=== PATIENT | female | born 1980 | race Caucasian/White ===

== ENCOUNTER 2016-04-01 19:54 | Emergency (ER) | payer OTHER ==
[~2016-04-01] VITALS: Ht 167.6 cm; Wt 112.3 kg
[~2016-04-01 19:54] MED LIST: ADVIL,NUPRIN,M200 MG PO; ADVIL200 MG PO; ASPIRIN E.C.81 M1 PO; AZACTAM2 GM IV; BACTRIM,SEPT1 TABLET PO; CARDIZEM CD,CA180 MG PO; CARDIZEM60 MG PO; CIPRO500 MG PO; CIPROFLOXACIN500 M1 PO; CLEOCIN300 MG PO; Colace PO; DESYREL100 MG PO; DILTIAZEM 24HR120 MG PO; ELAVIL10 MG PO; ENDOCET 5-3251 EACH PO; FLEXERIL10 MG PO; FLOMAX0.4 MG PO; Feosol PO; HYDROCODON-ACE1 EAC7 PO; IBUPROFEN800 MG PO; KLONOPIN0.5 M1 PO; LYRICA50 MG PO; MACROBID100 MG PO; METOPROLOL SUCC50 MG PO; Motrin PO; NAPROSYN500 MG PO; NATALCARE RX1 TABLE1 PO; NO HOME MEDS; NOHOMEMEDS; OMEPRAZOLE20 MG PO; OXYCODONE HCL15 MG PO; PERCOCET 10/1 TABLET PO; PERCOCET 5/31 TABLET PO; PRENATAL1 EACH PO; PRILOSEC20 MG PO; PROAIR HFA8.5 GM IH; PROTONIX40 MG PO; Procardia XL,Adalat PO; REGLAN10 MG PO; TORADOL10 MG PO; TYLENOL EXTRA500 MG PO; VALIUM5 MG PO; VOLTAREN-XR100 MG PO; ZITHROMAX Z-PA250 MG PO; ZOFRAN ODT4 MG PO; ZOFRAN4 MG PO
[2016-04-01 21:04] LABS: ADD MIUA? NO; BILIRUBIN NEGATIVE; BLOOD NEGATIVE; COLOR YELLOW ((YELLOW)); GLUCOSE (STRIP) NEGATIVE; KETONES NEGATIVE; LEUKOCYTES NEGATIVE; NITRITE NEGATIVE; PROTEIN (STRIP) NEGATIVE; SPECIFIC GRAVITY 1.029 (1.000-1.030); UCUL ADDED? NO; UROBILINOGEN 0.2 MG/DL (0.2-1.0)
[2016-04-01 21:06] LABS: INTERNAL CONTROL VALID? YES
[2016-04-01] MEDS ORDERED: DIFLUCAN150 MG PO (22:41)
[2016-04-01] MEDS ORDERED: OXYCODONE HCL15 MG PO (22:43)
[2016-04-01 23:00] VITALS: BP 124/70
[2016-04-02 13:24] LABS: CHLAMYDIA TRACHOMATIS NEGATIVE; NEISSERIA GONORRHOEAE NEGATIVE
== END 2016-04-01 23:34 | disposition home or self-care (01) ==
LOC: RME 19:54 → EME 19:54 → RME 23:34
PROVIDERS: Physician Assistant
DX: N89.8 Other specified noninflammatory disorders of vagina (principal)
CPT/HCPCS: 76856; 81003; 84703; 87210; 87491; 87591; 99281; 99284

== ENCOUNTER 2016-05-12 08:51 | Emergency (ER) | payer OTHER ==
[~2016-05-12] VITALS: Ht 167.6 cm; Wt 110.3 kg
[~2016-05-12 08:51] MED LIST changes: +DIFLUCAN150 MG PO
[2016-05-12 08:56] VITALS: BP 119/78
[2016-05-12 10:01] LABS: ADD MIUA? YES; BILIRUBIN SMALL; BLOOD NEGATIVE; COLOR YELLOW ((YELLOW)); GLUCOSE (STRIP) NEGATIVE; KETONES 5; LEUKOCYTES MODERATE; NITRITE NEGATIVE; PROTEIN (STRIP) 100; UROBILINOGEN 0.2 MG/DL (0.2-1.0)
[2016-05-12 10:21] LABS: BACTERIA RARE /HPF; EPITHELIAL CELLS 1+ /HPF; HYALINE CASTS 0-5 /LPF; MUCUS TRACE /LPF; RED BLOOD CELLS NONE SEEN /HPF (0-5); UCUL ADDED? YES; WHITE BLOOD CELLS TNTC /HPF (0-5)
[2016-05-12 10:44] LABS: HEMATOCRIT 33.9 % (36.0-46.0); MCH 28.8 PG (29.0-34.0); MCV 87.1 FL (83-99); MEAN PLAT.VOLUME 9.3 uM^3 (9.5-12.4); PLATELET COUNT 214 K/uL (156-360); RBC DIS.WIDTH-CV 14.1 % (11.8-14.6); RBC DIS.WIDTH-SD 43.9 % (39-53); RED BLOOD COUNT 3.89 M/uL (3.80-5.20); WHITE BLOOD COUNT 8.3 K/uL (4.1-10.2)
[2016-05-12 10:56] LABS: CHLORIDE 103 mEq/L (99-109); POTASSIUM 3.4 mEq/L (3.7-5.4); SODIUM 141 mEq/L (136-147)
[2016-05-12 10:58] LABS: GLUCOSE 134 mg/dL (70-99)
[2016-05-12 10:59] LABS: ANION GAP 12 MEQ/L (2-14)
[2016-05-12 11:00] LABS: TOTAL BILIRUBIN 0.1 mg/dL (0.0-1.0)
[2016-05-12 11:02] LABS: ALKALINE PHOSPHATASE 95 IU/L (3-129); GFR ESTIMATE (CALCULATED) > 59 mL/min/
[2016-05-12 11:03] LABS: UREA NITROGEN (BUN) 17 mg/dL (9-23)
[2016-05-12 11:11] LABS: QUANTITATIVE HCG < 4.0 MIU/ML
[2016-05-12] MEDS ORDERED: MORPHINE SULFAT15 M1 PO (22:50)
[2016-05-12] MEDS ORDERED: PRILOSEC20 MG PO (22:50)
[2016-05-12] MEDS ORDERED: FLONASE16 G1 BOTH NARES (22:50)
[2016-05-12] MEDS ORDERED: PERCOCET 10/1 TABLET PO (22:50)
[2016-05-12] MEDS ORDERED: DESYREL100 MG PO (22:51)
== END 2016-05-12 11:10 | disposition left against medical advice (07) ==
LOC: EME 08:51
DX: R50.9 Fever, unspecified (principal); M79.1 Myalgia; R51 Headache; R10.9 Unspecified abdominal pain; R30.9 Painful micturition, unspecified; Z53.21 Procedure and treatment not carried out due to patient leaving prior to being seen by health care provider
CPT/HCPCS: 80053; 81003; 84702; 85027; 87077; 87086; 87186

== ENCOUNTER 2016-05-12 17:46 | Inpatient (IN) | payer OTHER ==
[~2016-05-12] VITALS: Ht 167.6 cm; Wt 112.9 kg
[2016-05-12 20:55] LABS: EOSINOPHIL (%) 0.7 % (0-5); EOSINOPHIL COUNT 0.1 K/uL (0-0.3); HEMATOCRIT 35.9 % (36.0-46.0); IMMATURE GRANULOCYTE (%) 0.2 % (0.0-0.7); IMMATURE GRANULOCYTE COUNT 0.2 K/uL; LYMPHOCYTE COUNT 0.7 K/uL (1.0-2.8); MCHC 33.4 G/DL (30.0-36.0); MCV 86.7 FL (83-99); MEAN PLAT.VOLUME 9.4 uM^3 (9.5-12.4); MONOCYTE (%) 3.8 % (3-12); MONOCYTE COUNT 0.3 K/uL (0-0.8); NEUTROPHIL (%) 86.5 % (45-76); PLATELET COUNT 234 K/uL (156-360); RBC DIS.WIDTH-CV 14.1 % (11.8-14.6); RBC DIS.WIDTH-SD 43.7 % (39-53); RED BLOOD COUNT 4.14 M/uL (3.80-5.20); WHITE BLOOD COUNT 8.1 K/uL (4.1-10.2)
[2016-05-12 21:04] LABS: CHLORIDE 95 mEq/L (99-109); POTASSIUM 3.9 mEq/L (3.7-5.4); SODIUM 135 mEq/L (136-147)
[2016-05-12 21:04] LABS: ADD MIUA? NO; BILIRUBIN NEGATIVE; BLOOD NEGATIVE; COLOR YELLOW ((YELLOW)); GLUCOSE (STRIP) NEGATIVE; KETONES NEGATIVE; LEUKOCYTES NEGATIVE; NITRITE NEGATIVE; PROTEIN (STRIP) 30; SPECIFIC GRAVITY 1.013 (1.000-1.030); UROBILINOGEN 0.2 MG/DL (0.2-1.0)
[2016-05-12 21:06] LABS: GLUCOSE 131 mg/dL (70-99)
[2016-05-12 21:07] LABS: ANION GAP 13 MEQ/L (2-14)
[2016-05-12 21:09] LABS: ALKALINE PHOSPHATASE 118 IU/L (3-129)
[2016-05-12 21:10] LABS: GFR ESTIMATE (CALCULATED) > 59 mL/min/
[2016-05-12 21:11] LABS: UREA NITROGEN (BUN) 9 mg/dL (9-23)
[2016-05-12 21:17] LABS: TOTAL BILIRUBIN 0.2 mg/dL (0.0-1.0)
[2016-05-12] MEDS ORDERED: FLONASE16 G1 BOTH NARES (22:50)
[2016-05-12] MEDS ORDERED: PERCOCET 10/1 TABLET PO (22:50)
[2016-05-12] MEDS ORDERED: PRILOSEC20 MG PO (22:50)
[2016-05-12] MEDS ORDERED: MORPHINE SULFAT15 M1 PO (22:50)
[2016-05-12] MEDS ORDERED: DESYREL100 MG PO (22:51)
[2016-05-13 02:58] VITALS: BP 107/58
[2016-05-13 07:10] LABS: EOSINOPHIL (%) 1.6 % (0-5); EOSINOPHIL COUNT 0.1 K/uL (0-0.3); HEMATOCRIT 33.4 % (36.0-46.0); IMMATURE GRANULOCYTE (%) 0.1 % (0.0-0.7); LYMPHOCYTE COUNT 2.1 K/uL (1.0-2.8); MCH 27.8 PG (29.0-34.0); MCHC 31.7 G/DL (30.0-36.0); MCV 87.7 FL (83-99); MEAN PLAT.VOLUME 9.8 uM^3 (9.5-12.4); MONOCYTE (%) 10.1 % (3-12); MONOCYTE COUNT 0.7 K/uL (0-0.8); NEUTROPHIL (%) 57.6 % (45-76); PLATELET COUNT 221 K/uL (156-360); RBC DIS.WIDTH-CV 14.7 % (11.8-14.6); RBC DIS.WIDTH-SD 47.1 % (39-53); RED BLOOD COUNT 3.81 M/uL (3.80-5.20)
[2016-05-13 07:34] LABS: ANION GAP 10 MEQ/L (2-14); CHLORIDE 101 MEQ/L (99-109); GFR ESTIMATE (CALCULATED) > 59 mL/min/; POTASSIUM 4.2 MEQ/L (3.7-5.4); SAMPLE HEMOLYSIS CHECK 0; SAMPLE ICTERIC CHECK 0; SAMPLE LIPEMIA CHECK 0; SODIUM 138 MEQ/L (136-147); UREA NITROGEN (BUN) 9 mg/dL (9-23)
[2016-05-13 07:40] LABS: GLUCOSE 89 mg/dL (70-99)
[2016-05-13 08:22] VITALS: BP 138/69
[2016-05-13 10:09] LABS: Estimated Average Glucose 111 mg/dL (70-123); HEMOGLOBIN A1c (GLYCOHEMOGLOB) 5.5 % HGB (Below 5.7)
[2016-05-13 12:03] VITALS: BP 99/57
[2016-05-13 23:43] VITALS: BP 125/70
[2016-05-14 06:43] LABS: EOSINOPHIL (%) 1.9 % (0-5); EOSINOPHIL COUNT 0.1 K/uL (0-0.3); HEMATOCRIT 30.1 % (36.0-46.0); MCH 28.5 PG (29.0-34.0); MCHC 32.2 G/DL (30.0-36.0); MCV 88.5 FL (83-99); MEAN PLAT.VOLUME 9.4 uM^3 (9.5-12.4); MONOCYTE (%) 9.3 % (3-12); MONOCYTE COUNT 0.5 K/uL (0-0.8); NEUTROPHIL (%) 52.9 % (45-76); PLATELET COUNT 206 K/uL (156-360); RBC DIS.WIDTH-CV 14.8 % (11.8-14.6); RBC DIS.WIDTH-SD 48.1 % (39-53); WHITE BLOOD COUNT 5.7 K/uL (4.1-10.2)
[2016-05-14 07:41] LABS: ANION GAP 9 MEQ/L (2-14); CHLORIDE 106 MEQ/L (99-109); GFR ESTIMATE (CALCULATED) > 59 mL/min/; GLUCOSE 98 mg/dL (70-99); MAGNESIUM 2.1 mg/dl (1.3-2.7); POTASSIUM 4.3 MEQ/L (3.7-5.4); SAMPLE HEMOLYSIS CHECK 0; SAMPLE ICTERIC CHECK 0; SAMPLE LIPEMIA CHECK 0; SODIUM 141 MEQ/L (136-147); UREA NITROGEN (BUN) 9 mg/dL (9-23)
[2016-05-14 07:50] VITALS: BP 108/54
[2016-05-14] MEDS ORDERED: KEFLEX250 MG PO (11:30)
[2016-05-14 12:22] LABS: INTERNAL CONTROL VALID? YES
[2016-05-14 12:50] LABS: C DIFF TOXIN NEGATIVE (NEGATIVE)
[2016-05-14 12:53] LABS: PROBE CHECK PASS; SPECIMEN PROCESSING CONTROL PASS
== END 2016-05-14 11:35 | disposition left against medical advice (07) | DRG 872 ==
LOC: EME 17:46 → RME 17:46 → EDOF 23:00 → 2EAST 23:00 → EDOF 05-13 00:03 → 2EAST 05-13 02:55
PROVIDERS: Internal Medicine; Physician Assistant
DX: A41.9 Sepsis, unspecified organism (principal); N10 Acute pyelonephritis; F33.9 Major depressive disorder, recurrent, unspecified; E87.1 Hypo-osmolality and hyponatremia; Z68.41 Body mass index [BMI] 40.0-44.9, adult; Z91.19 Patient's noncompliance with other medical treatment and regimen; I10 Essential (primary) hypertension; K21.9 Gastro-esophageal reflux disease without esophagitis; G89.29 Other chronic pain; B96.20 Unspecified Escherichia coli [E. coli] as the cause of diseases classified elsewhere; R00.0 Tachycardia, unspecified; J45.909 Unspecified asthma, uncomplicated; M62.81 Muscle weakness (generalized); F17.210 Nicotine dependence, cigarettes, uncomplicated; E66.01 Morbid (severe) obesity due to excess calories; Z88.0 Allergy status to penicillin; Z82.49 Family history of ischemic heart disease and other diseases of the circulatory system
CPT/HCPCS: 74177; 80048; 80053; 81003; 83036; 83605; 83630; 83735; 85025; 87040; 87077; 87086; 87186; 87493; 94799; 99202; 99281; 99285; G0378; J0696; J1644; J1885; J2405; J3010; J7030; J7050; J7120

== ENCOUNTER 2016-06-10 03:15 | Observation (INO) | payer OTHER ==
[~2016-06-10] VITALS: Ht 167.6 cm; Wt 106.8 kg
[~2016-06-10 03:15] MED LIST changes: +FLONASE16 G1 BOTH NARES; +KEFLEX250 MG PO; +MORPHINE SULFAT15 M1 PO
[2016-06-10 03:53] LABS: HEMATOCRIT 43.5 % (36.0-46.0); MCH 29.5 PG (29.0-34.0); MCHC 33.8 G/DL (30.0-36.0); MCV 87.2 FL (83-99); MEAN PLAT.VOLUME 9.2 uM^3 (9.5-12.4); RBC DIS.WIDTH-CV 13.8 % (11.8-14.6); RBC DIS.WIDTH-SD 44.1 % (39-53)
[2016-06-10 03:57] LABS: PLATELET COUNT 305 K/uL (156-360); RED BLOOD COUNT 4.99 M/uL (3.80-5.20); WHITE BLOOD COUNT 15.6 K/uL (4.1-10.2)
[2016-06-10 04:02] LABS: CHLORIDE 101 mEq/L (99-109); POTASSIUM 3.2 mEq/L (3.7-5.4); SODIUM 139 mEq/L (136-147)
[2016-06-10 04:04] LABS: GLUCOSE 172 mg/dL (70-99)
[2016-06-10 04:05] LABS: ANION GAP 15 MEQ/L (2-14)
[2016-06-10 04:06] LABS: TOTAL BILIRUBIN 0.5 mg/dL (0.0-1.0)
[2016-06-10 04:07] LABS: ALKALINE PHOSPHATASE 93 IU/L (3-129)
[2016-06-10 04:08] LABS: GFR ESTIMATE (CALCULATED) > 59 mL/min/
[2016-06-10 04:09] LABS: UREA NITROGEN (BUN) 15 mg/dL (9-23)
[2016-06-10 04:16] LABS: QUANTITATIVE HCG < 4.0 MIU/ML
[2016-06-10 04:43] LABS: LIPASE 11 U/L (1.0-51.0)
[2016-06-10 04:46] LABS: ADD MIUA? YES; BILIRUBIN NEGATIVE; BLOOD MODERATE; COLOR AMBER ((YELLOW)); GLUCOSE (STRIP) NEGATIVE; KETONES 20; LEUKOCYTES NEGATIVE; NITRITE POSITIVE; PROTEIN (STRIP) 100; SPECIFIC GRAVITY 1.031 (1.000-1.030); UROBILINOGEN 0.2 MG/DL (0.2-1.0)
[2016-06-10 04:57] LABS: BACTERIA 3+ /HPF; EPITHELIAL CELLS 3+ /HPF; MUCUS 4+ /LPF; RED BLOOD CELLS TNTC /HPF (0-5); UCUL ADDED? NO; WHITE BLOOD CELLS 0-5 /HPF (0-5)
[2016-06-10 08:04] VITALS: BP 177/96
[2016-06-10 09:27] LABS: METH RESISTANT S AUREUS PCR NEGATIVE (NEGATIVE)
[2016-06-10 09:36] LABS: PROBE CHECK PASS; SPECIMEN PROCESSING CONTROL PASS
[2016-06-10 11:00] VITALS: BP 171/77
[2016-06-10 15:58] VITALS: BP 144/69
[2016-06-10 20:00] VITALS: BP 128/80
[2016-06-11] VITALS: BP 120/64
[2016-06-11 04:00] VITALS: BP 132/80
[2016-06-11 06:56] LABS: HEMATOCRIT 38.2 % (36.0-46.0); MCH 28.9 PG (29.0-34.0); MCHC 32.7 G/DL (30.0-36.0); MCV 88.2 FL (83-99); RBC DIS.WIDTH-CV 13.8 % (11.8-14.6); RBC DIS.WIDTH-SD 44.9 % (39-53); RED BLOOD COUNT 4.33 M/uL (3.80-5.20)
[2016-06-11 07:06] LABS: WHITE BLOOD COUNT 7.8 K/uL (4.1-10.2)
[2016-06-11 07:11] LABS: ANION GAP 10 MEQ/L (2-14); CHLORIDE 107 MEQ/L (99-109); GFR ESTIMATE (CALCULATED) > 59 mL/min/; SAMPLE HEMOLYSIS CHECK 0; SAMPLE ICTERIC CHECK 0; SAMPLE LIPEMIA CHECK 0; SODIUM 142 MEQ/L (136-147); UREA NITROGEN (BUN) 11 mg/dL (9-23)
[2016-06-11 07:16] LABS: GLUCOSE 90 mg/dL (70-99)
[2016-06-11 08:42] LABS: MEAN PLAT.VOLUME 9.8 uM^3 (9.5-12.4)
[2016-06-11 09:26] LABS: PLATELET COUNT 194 K/uL (156-360)
[2016-06-11 10:58] LABS: ADD MIUA? YES; BILIRUBIN NEGATIVE; BLOOD NEGATIVE; COLOR YELLOW ((YELLOW)); GLUCOSE (STRIP) NEGATIVE; KETONES NEGATIVE; LEUKOCYTES NEGATIVE; NITRITE NEGATIVE; PROTEIN (STRIP) NEGATIVE; SPECIFIC GRAVITY 1.019 (1.000-1.030); UROBILINOGEN 0.2 MG/DL (0.2-1.0)
[2016-06-11 11:03] VITALS: BP 142/64
[2016-06-11 11:55] LABS: BACTERIA 3+ /HPF; CASTS NONE SEEN /LPF; CRYSTALS PRESENT; EPITHELIAL CELLS 3+ /HPF; MUCUS RARE /LPF; RED BLOOD CELLS 0-5 /HPF (0-5); UCUL ADDED? NO; WHITE BLOOD CELLS 0-5 /HPF (0-5)
[2016-06-11 11:56] LABS: AMORPHOUS URATES CRYSTALS RARE
[2016-06-11 12:10] LABS: AMPHETAMINES QUANT VALUE 0 NG/ML; BARBITUATES QUANT VALUE 0 NG/ML; BENZODIAZEPINES QUANT VALUE 0 NG/ML; BENZODIAZEPINES, URINE SCREEN Negative (200 ng/mL)
[2016-06-11 12:51] LABS: PHENCYCLIDINE QUANT VALUE 0 NG/ML
[2016-06-11 16:00] VITALS: BP 187/95
[2016-06-11 21:28] VITALS: BP 140/80
[2016-06-12 00:59] VITALS: BP 148/84
[2016-06-12 03:49] VITALS: BP 190/89
[2016-06-12 07:31] VITALS: BP 160/90
[2016-06-12] MEDS ORDERED: MORPHINE SULFAT15 M1 PO (08:25)
[2016-06-12] MEDS ORDERED: PERCOCET 10/1 TABLET PO (08:25)
[2016-06-12 08:31] LABS: ANION GAP 13 MEQ/L (2-14); CHLORIDE 99 MEQ/L (99-109); GFR ESTIMATE (CALCULATED) > 59 mL/min/; GLUCOSE 120 mg/dL (70-99); POTASSIUM 3.5 MEQ/L (3.7-5.4); SAMPLE HEMOLYSIS CHECK 0; SAMPLE ICTERIC CHECK 0; SAMPLE LIPEMIA CHECK 0; SODIUM 135 MEQ/L (136-147); UREA NITROGEN (BUN) 8 mg/dL (9-23)
[2016-06-12 08:40] LABS: HEMATOCRIT 41.2 % (36.0-46.0); MCH 29.4 PG (29.0-34.0); MCHC 34.2 G/DL (30.0-36.0); MCV 85.8 FL (83-99); MEAN PLAT.VOLUME 9.5 uM^3 (9.5-12.4); PLATELET COUNT 240 K/uL (156-360); RBC DIS.WIDTH-CV 13.2 % (11.8-14.6); RBC DIS.WIDTH-SD 41.3 % (39-53)
[2016-06-12 08:41] LABS: WHITE BLOOD COUNT 11.4 K/uL (4.1-10.2)
== END 2016-06-12 09:56 | disposition home or self-care (01) ==
LOC: EME 03:15 → EDOF 06:05 → 5WEST 06:05 → EDOF 06:05 → 5WEST 07:10
PROVIDERS: Family Medicine
DX: K52.9 Noninfective gastroenteritis and colitis, unspecified (principal); N39.0 Urinary tract infection, site not specified; E87.6 Hypokalemia; E86.0 Dehydration; F11.20 Opioid dependence, uncomplicated; G89.29 Other chronic pain; R10.9 Unspecified abdominal pain; R11.2 Nausea with vomiting, unspecified; F31.9 Bipolar disorder, unspecified; K21.9 Gastro-esophageal reflux disease without esophagitis; J45.909 Unspecified asthma, uncomplicated
CPT/HCPCS: 74177; 80048; 80053; 80306 90; 81003; 83690; 84702; 85027; 87077; 87086; 87186; 87493; 87641; 99281; 99285; C9113; G0378; J0360; J0744; J1170; J1885; J2405; J2765; J3010; J3480; J7030; Q0169; S0030

== ENCOUNTER 2016-07-07 17:04 | Inpatient (IN) | payer OTHER ==
[~2016-07-07] VITALS: Ht 167.6 cm; Wt 110.4 kg
[2016-07-07 17:41] LABS: ADD MIUA? YES; BILIRUBIN NEGATIVE; BLOOD NEGATIVE; COLOR YELLOW ((YELLOW)); GLUCOSE (STRIP) NEGATIVE; KETONES NEGATIVE; LEUKOCYTES NEGATIVE; NITRITE NEGATIVE; PROTEIN (STRIP) 30; SPECIFIC GRAVITY 1.019 (1.000-1.030); UROBILINOGEN 0.2 MG/DL (0.2-1.0)
[2016-07-07 18:08] LABS: BACTERIA NONE SEEN /HPF; EPITHELIAL CELLS 2+ /HPF; HYALINE CASTS 0-5 /LPF; MUCUS 2+ /LPF; RED BLOOD CELLS 0-5 /HPF (0-5); UCUL ADDED? NO; WHITE BLOOD CELLS 0-5 /HPF (0-5)
[2016-07-07 18:09] LABS: MCH 29.2 PG (29.0-34.0); MCV 88.5 FL (83-99); MEAN PLAT.VOLUME 9.5 uM^3 (9.5-12.4); PLATELET COUNT 311 K/uL (156-360); RBC DIS.WIDTH-CV 13.5 % (11.8-14.6); RBC DIS.WIDTH-SD 43.8 % (39-53); RED BLOOD COUNT 4.86 M/uL (3.80-5.20); WHITE BLOOD COUNT 8.8 K/uL (4.1-10.2)
[2016-07-07 18:19] LABS: CHLORIDE 108 mEq/L (99-109); POTASSIUM 3.8 mEq/L (3.7-5.4); SODIUM 141 mEq/L (136-147)
[2016-07-07 18:20] LABS: GLUCOSE 134 mg/dL (70-99)
[2016-07-07 18:22] LABS: ANION GAP 10 MEQ/L (2-14)
[2016-07-07 18:24] LABS: GFR ESTIMATE (CALCULATED) > 59 mL/min/
[2016-07-07 18:25] LABS: UREA NITROGEN (BUN) 8 mg/dL (9-23)
[2016-07-07 18:34] LABS: QUANTITATIVE HCG < 4.0 MIU/ML
[2016-07-07] MEDS ORDERED: NORCO 5/3251 TABLET PO (19:04)
[2016-07-07 19:15] LABS: AMPHETAMINE NEGATIVE (500 ng/mL); BARBITURATES NEGATIVE (200 ng/mL); BENZODIAZEPINES NEGATIVE (150 ng/mL); COCAINE NEGATIVE (150 ng/mL); INTERNAL CONTROLS VALID? YES; METHADONE NEGATIVE (200 ng/mL); METHAMPHETAMINE NEGATIVE (500 ng/mL); OPIATES (MORPHINE) NEGATIVE (100 ng/mL); OXYCODONE PRESUMPTIVE POSITIVE (100 ng/mL); PHENCYCLIDINE NEGATIVE (25 ng/mL); PROPOXYPHENE NEGATIVE (300 ng/mL); THC CANNABINOIDS NEGATIVE (50 ng/mL); TRICYCLIC ANTIDEPRESSANTS NEGATIVE (300 ng/mL)
[2016-07-07] MEDS ORDERED: CLONIDINE HCL0.2 MG PO (21:21)
[2016-07-07 21:25] LABS: TOTAL BILIRUBIN 0.4 mg/dL (0.0-1.0)
[2016-07-07 21:26] LABS: ALKALINE PHOSPHATASE 73 IU/L (3-129)
[2016-07-07 21:29] LABS: DIRECT BILIRUBIN 0.2 mg/dL (0.0-0.3)
[2016-07-07 21:30] LABS: LIPASE 22 U/L (1.0-51.0)
[2016-07-07 23:05] VITALS: BP 186/102
[2016-07-08 04:10] VITALS: BP 168/76
[2016-07-08 07:40] VITALS: BP 146/83
[2016-07-08 12:29] VITALS: BP 142/76
[2016-07-08 20:00] VITALS: BP 126/74
== END 2016-07-08 20:59 | disposition left against medical advice (07) | DRG 92 ==
LOC: EME 17:04 → EDOF 22:02 → 5WEST 23:00
PROC: 0DB78ZX Excision of Stomach, Pylorus, Via Natural or Artificial Opening Endoscopic, Diagnostic (ICD-10-PCS; principal; 2016-07-08)
DX: G89.4 Chronic pain syndrome (principal); K22.10 Ulcer of esophagus without bleeding; K29.70 Gastritis, unspecified, without bleeding; F31.89 Other bipolar disorder; F11.20 Opioid dependence, uncomplicated; I16.0 Hypertensive urgency; K21.9 Gastro-esophageal reflux disease without esophagitis; K44.9 Diaphragmatic hernia without obstruction or gangrene; F10.10 Alcohol abuse, uncomplicated; J45.909 Unspecified asthma, uncomplicated; F19.10 Other psychoactive substance abuse, uncomplicated; F17.210 Nicotine dependence, cigarettes, uncomplicated; E66.9 Obesity, unspecified; N20.0 Calculus of kidney; M41.9 Scoliosis, unspecified; M51.36 Other intervertebral disc degeneration, lumbar region; Z68.39 Body mass index [BMI] 39.0-39.9, adult; Z90.49 Acquired absence of other specified parts of digestive tract
CPT/HCPCS: 71020; 74176; 80048; 80076; 81003; 83690; 84702; 85027; 87040; 87493; 88305; 88342 TC; 99202; 99281; 99285; G0378; G0480; J0360; J1630; J1650; J1885; J2060; J2250; J2405; J2765; J3010; J7030

== ENCOUNTER 2016-09-10 08:21 | Observation (INO) | payer OTHER ==
[~2016-09-10] VITALS: Ht 167.6 cm; Wt 106.3 kg
[~2016-09-10 08:21] MED LIST changes: +CLONIDINE HCL0.2 MG PO; +NORCO 5/3251 TABLET PO
[2016-09-10 09:08] LABS: HEMATOCRIT 42.2 % (36.0-46.0); MCH 29.3 PG (29.0-34.0); MCHC 33.4 G/DL (30.0-36.0); MCV 87.6 FL (83-99); MEAN PLAT.VOLUME 9.2 uM^3 (9.5-12.4); PLATELET COUNT 254 K/uL (156-360); RBC DIS.WIDTH-CV 12.6 % (11.8-14.6); RBC DIS.WIDTH-SD 40.5 % (39-53); RED BLOOD COUNT 4.82 M/uL (3.80-5.20); WHITE BLOOD COUNT 12.2 K/uL (4.1-10.2)
[2016-09-10 09:21] LABS: CHLORIDE 106 mEq/L (99-109); SODIUM 141 mEq/L (136-147)
[2016-09-10 09:23] LABS: GLUCOSE 172 mg/dL (70-99)
[2016-09-10 09:24] LABS: ANION GAP 12 MEQ/L (2-14)
[2016-09-10 09:25] LABS: TOTAL BILIRUBIN 0.6 mg/dL (0.0-1.0)
[2016-09-10 09:26] LABS: ALKALINE PHOSPHATASE 79 IU/L (3-129)
[2016-09-10 09:27] LABS: GFR ESTIMATE (CALCULATED) > 59 mL/min/
[2016-09-10 09:28] LABS: UREA NITROGEN (BUN) 10 mg/dL (9-23)
[2016-09-10 09:30] LABS: LIPASE 11 U/L (1.0-51.0)
[2016-09-10 11:21] LABS: ADD MIUA? YES; BILIRUBIN NEGATIVE; BLOOD NEGATIVE; COLOR AMBER ((YELLOW)); GLUCOSE (STRIP) NEGATIVE; KETONES 80; LEUKOCYTES TRACE; NITRITE POSITIVE; PROTEIN (STRIP) 100; SPECIFIC GRAVITY 1.023 (1.000-1.030); UROBILINOGEN 0.2 MG/DL (0.2-1.0)
[2016-09-10 11:23] LABS: INTERNAL CONTROL VALID? YES
[2016-09-10 11:32] LABS: BACTERIA 3+ /HPF; EPITHELIAL CELLS 4+ /HPF; MUCUS 4+ /LPF; RED BLOOD CELLS 15-20 /HPF (0-5); UCUL ADDED? YES; WHITE BLOOD CELLS 15-20 /HPF (0-5)
[2016-09-10] MEDS ORDERED: 24HOUR ALLERGY10 MG PO (12:22)
[2016-09-10] MEDS ORDERED: DOLOPHINE HCL5 MG PO (12:22)
[2016-09-10 13:20] VITALS: BP 182/87
[2016-09-10 16:27] VITALS: BP 143/72
[2016-09-10 20:00] VITALS: BP 178/77
[2016-09-11 03:13] VITALS: BP 93/58
[2016-09-11 04:45] VITALS: BP 96/55
[2016-09-11 05:19] LABS: HEMATOCRIT 34.6 % (36.0-46.0); MCH 30.7 PG (29.0-34.0); MCHC 34.4 G/DL (30.0-36.0); MCV 89.4 FL (83-99); MEAN PLAT.VOLUME 9.2 uM^3 (9.5-12.4); PLATELET COUNT 195 K/uL (156-360); RBC DIS.WIDTH-CV 13.2 % (11.8-14.6); RED BLOOD COUNT 3.87 M/uL (3.80-5.20); WHITE BLOOD COUNT 11.4 K/uL (4.1-10.2)
[2016-09-11 05:44] LABS: ANION GAP 7 MEQ/L (2-14); CHLORIDE 104 MEQ/L (99-109); GFR ESTIMATE (CALCULATED) > 59 mL/min/; POTASSIUM 3.8 MEQ/L (3.7-5.4); SAMPLE HEMOLYSIS CHECK 0; SAMPLE ICTERIC CHECK 0; SAMPLE LIPEMIA CHECK 0; SODIUM 138 MEQ/L (136-147); UREA NITROGEN (BUN) 7 mg/dL (9-23)
[2016-09-11 05:45] LABS: GLUCOSE 98 mg/dL (70-99)
[2016-09-11 05:51] LABS: ALKALINE PHOSPHATASE 61 IU/L (3-129); DIRECT BILIRUBIN 0.2 mg/dL (0.0-0.3); LIPASE 118 U/L (1.0-51.0); TOTAL BILIRUBIN 0.6 MG/DL (0.0-1.0)
[2016-09-11 07:55] VITALS: BP 104/53
[2016-09-11] MEDS ORDERED: DIFLUCAN150 MG PO (09:08)
[2016-09-11] MEDS ORDERED: BACTRIM,SEPT1 TABLET PO (09:08)
== END 2016-09-11 09:57 | disposition home or self-care (01) ==
LOC: EME → EDBD 08:21 → EDOF 12:01 → 5WEST 13:15
PROVIDERS: Emergency Medicine; Hospitalist; Internal Medicine
DX: N39.0 Urinary tract infection, site not specified (principal); N20.0 Calculus of kidney; R11.2 Nausea with vomiting, unspecified; R10.9 Unspecified abdominal pain; G89.29 Other chronic pain; M54.9 Dorsalgia, unspecified; G43.909 Migraine, unspecified, not intractable, without status migrainosus; K21.9 Gastro-esophageal reflux disease without esophagitis; I10 Essential (primary) hypertension; J45.909 Unspecified asthma, uncomplicated; F31.9 Bipolar disorder, unspecified; E66.9 Obesity, unspecified; Z68.37 Body mass index [BMI] 37.0-37.9, adult
CPT/HCPCS: 74176; 74177; 80048; 80053; 80076; 81003; 83605; 83690; 84703; 85027; 87086; 87186; 99281; 99285; C9113; G0378; J1170; J1956; J2270; J2405; J2765; J3010; J7030

== ENCOUNTER 2016-09-13 15:07 | Observation (INO) | payer OTHER ==
[~2016-09-13] VITALS: Ht 167.6 cm; Wt 109.2 kg
[~2016-09-13 15:07] MED LIST changes: +24HOUR ALLERGY10 MG PO; +DOLOPHINE HCL5 MG PO
[2016-09-13 16:22] LABS: CHLORIDE 104 mEq/L (99-109); POTASSIUM 3.8 mEq/L (3.7-5.4); SODIUM 140 mEq/L (136-147)
[2016-09-13 16:24] LABS: GLUCOSE 126 mg/dL (70-99)
[2016-09-13 16:25] LABS: ANION GAP 12 MEQ/L (2-14); HEMATOCRIT 47.1 % (36.0-46.0); MCH 29.1 PG (29.0-34.0); MCHC 33.3 G/DL (30.0-36.0); MCV 87.4 FL (83-99); MEAN PLAT.VOLUME 9.6 uM^3 (9.5-12.4); RBC DIS.WIDTH-CV 12.8 % (11.8-14.6); RBC DIS.WIDTH-SD 40.7 % (39-53); WHITE BLOOD COUNT 11.5 K/uL (4.1-10.2)
[2016-09-13 16:26] LABS: PLATELET COUNT 266 K/uL (156-360); RED BLOOD COUNT 5.39 M/uL (3.80-5.20)
[2016-09-13 16:27] LABS: ALKALINE PHOSPHATASE 92 IU/L (3-129); TOTAL BILIRUBIN 0.8 mg/dL (0.0-1.0)
[2016-09-13 16:28] LABS: GFR ESTIMATE (CALCULATED) > 59 mL/min/
[2016-09-13 16:29] LABS: UREA NITROGEN (BUN) 14 mg/dL (9-23)
[2016-09-13 16:38] LABS: QUANTITATIVE HCG < 4.0 MIU/ML
[2016-09-13 17:07] LABS: LIPASE 18 U/L (1.0-51.0)
[2016-09-13 17:28] LABS: ADD MIUA? YES; BILIRUBIN NEGATIVE; BLOOD MODERATE; COLOR YELLOW ((YELLOW)); GLUCOSE (STRIP) NEGATIVE; KETONES 5; LEUKOCYTES NEGATIVE; NITRITE NEGATIVE; PROTEIN (STRIP) 30; SPECIFIC GRAVITY 1.023 (1.000-1.030); UROBILINOGEN 0.2 MG/DL (0.2-1.0)
[2016-09-13 18:22] LABS: RED BLOOD CELLS 0-5 /HPF (0-5); WHITE BLOOD CELLS RARE /HPF (0-5)
[2016-09-13 18:23] LABS: BACTERIA RARE /HPF; EPITHELIAL CELLS 1+ /HPF; MUCUS TRACE /LPF; UCUL ADDED? NO
[2016-09-13 21:42] VITALS: BP 166/77
[2016-09-14 00:30] VITALS: BP 163/76
[2016-09-14 04:22] VITALS: BP 112/60
[2016-09-14 05:57] LABS: EOSINOPHIL (%) 0.2 % (0-5); HEMATOCRIT 38.9 % (36.0-46.0); IMMATURE GRANULOCYTE (%) 0.4 % (0.0-0.7); INSTRUMENT ABS NEUTROPHIL CT 6.6 K/uL; LYMPHOCYTE COUNT 2.9 K/uL (1.0-2.8); MCH 29.4 PG (29.0-34.0); MCHC 33.4 G/DL (30.0-36.0); MEAN PLAT.VOLUME 9.6 uM^3 (9.5-12.4); MONOCYTE (%) 5.8 % (3-12); MONOCYTE COUNT 0.6 K/uL (0-0.8); NEUTROPHIL (%) 64.6 % (45-76); NEUTROPHIL COUNT 6.6 K/uL (1.8-6.4); PLATELET COUNT 206 K/uL (156-360); RBC DIS.WIDTH-CV 12.7 % (11.8-14.6); RBC DIS.WIDTH-SD 41.1 % (39-53); RED BLOOD COUNT 4.42 M/uL (3.80-5.20); WHITE BLOOD COUNT 10.2 K/uL (4.1-10.2)
[2016-09-14 08:44] VITALS: BP 139/84
[2016-09-14 11:46] VITALS: BP 119/67
[2016-09-14 15:40] VITALS: BP 120/70
== END 2016-09-14 17:30 | disposition left against medical advice (07) ==
LOC: EXP 15:07 → EME 15:07 → EDOF 20:41 → 5WEST 20:41 → EDOF 20:41 → 5WEST 21:27
PROVIDERS: Hospitalist
DX: K31.84 Gastroparesis (principal); R11.2 Nausea with vomiting, unspecified; E86.0 Dehydration; D72.829 Elevated white blood cell count, unspecified; G89.4 Chronic pain syndrome; F17.210 Nicotine dependence, cigarettes, uncomplicated; E66.01 Morbid (severe) obesity due to excess calories; F31.9 Bipolar disorder, unspecified; N20.0 Calculus of kidney; K21.9 Gastro-esophageal reflux disease without esophagitis
CPT/HCPCS: 80053; 81003; 83690; 84702; 85025; 85027; 99281; 99285; G0378; J1630; J1650; J2060; J2405; J3010; J7030

== ENCOUNTER 2016-10-24 17:56 | Observation (INO) | payer OTHER ==
[~2016-10-24] VITALS: Ht 167.6 cm; Wt 108.4 kg
[2016-10-24 19:04] LABS: HEMATOCRIT 43.1 % (36.0-46.0); MCH 29.2 PG (29.0-34.0); MCHC 34.1 G/DL (30.0-36.0); MCV 85.7 FL (83-99); MEAN PLAT.VOLUME 9.2 uM^3 (9.5-12.4); PLATELET COUNT 288 K/uL (156-360); RBC DIS.WIDTH-CV 12.3 % (11.8-14.6); RBC DIS.WIDTH-SD 38.5 % (39-53); RED BLOOD COUNT 5.03 M/uL (3.80-5.20)
[2016-10-24 19:24] LABS: CHLORIDE 106 mEq/L (99-109); POTASSIUM 3.4 mEq/L (3.7-5.4); SODIUM 141 mEq/L (136-147)
[2016-10-24 19:26] LABS: GLUCOSE 148 mg/dL (70-99)
[2016-10-24 19:28] LABS: ANION GAP 11 MEQ/L (2-14)
[2016-10-24 19:30] LABS: ALKALINE PHOSPHATASE 98 IU/L (3-129); GFR ESTIMATE (CALCULATED) > 59 mL/min/
[2016-10-24 19:31] LABS: UREA NITROGEN (BUN) 15 mg/dL (9-23)
[2016-10-24 19:33] LABS: LIPASE 13 U/L (1.0-51.0)
[2016-10-24 19:40] LABS: QUANTITATIVE HCG < 4.0 MIU/ML
[2016-10-24 19:56] LABS: TOTAL BILIRUBIN 0.5 mg/dL (0.0-1.0)
[2016-10-24 23:38] VITALS: BP 167/81
[2016-10-25 02:15] LABS: METH RESISTANT S AUREUS PCR NEGATIVE (NEGATIVE)
[2016-10-25 02:16] LABS: PROBE CHECK PASS; SPECIMEN PROCESSING CONTROL PASS
[2016-10-25 03:52] VITALS: BP 184/86
[2016-10-25 05:34] LABS: EOSINOPHIL (%) 0 % (0-5); HEMATOCRIT 41.4 % (36.0-46.0); IMMATURE GRANULOCYTE (%) 0.4 % (0.0-0.7); IMMATURE GRANULOCYTE COUNT 0.1 K/uL; INSTRUMENT ABS NEUTROPHIL CT 9.7 K/uL; LYMPHOCYTE COUNT 2.3 K/uL (1.0-2.8); MCHC 33.6 G/DL (30.0-36.0); MCV 86.3 FL (83-99); MEAN PLAT.VOLUME 9.1 uM^3 (9.5-12.4); MONOCYTE (%) 5.1 % (3-12); MONOCYTE COUNT 0.7 K/uL (0-0.8); NEUTROPHIL (%) 76.3 % (45-76); NEUTROPHIL COUNT 9.7 K/uL (1.8-6.4); PLATELET COUNT 283 K/uL (156-360); RBC DIS.WIDTH-CV 12.5 % (11.8-14.6); RBC DIS.WIDTH-SD 39.5 % (39-53); WHITE BLOOD COUNT 12.7 K/uL (4.1-10.2)
[2016-10-25 05:51] LABS: ANION GAP 11 MEQ/L (2-14); CHLORIDE 103 MEQ/L (99-109); GFR ESTIMATE (CALCULATED) > 59 mL/min/; GLUCOSE 152 mg/dL (70-99); POTASSIUM 3.4 MEQ/L (3.7-5.4); SAMPLE HEMOLYSIS CHECK 0; SAMPLE ICTERIC CHECK 0; SAMPLE LIPEMIA CHECK 0; SODIUM 140 MEQ/L (136-147); UREA NITROGEN (BUN) 13 mg/dL (9-23)
[2016-10-25 09:12] VITALS: BP 187/98
[2016-10-25 10:14] LABS: ADD MIUA? YES; BILIRUBIN NEGATIVE; BLOOD SMALL; COLOR YELLOW ((YELLOW)); GLUCOSE (STRIP) NEGATIVE; KETONES 5; LEUKOCYTES NEGATIVE; NITRITE POSITIVE; PROTEIN (STRIP) 30; UROBILINOGEN 0.2 MG/DL (0.2-1.0)
[2016-10-25 11:17] LABS: BACTERIA 3+ /HPF; EPITHELIAL CELLS RARE /HPF; MUCUS 2+ /LPF; RED BLOOD CELLS 0-5 /HPF (0-5); UCUL ADDED? YES; WHITE BLOOD CELLS 0-5 /HPF (0-5)
[2016-10-25 11:46] VITALS: BP 160/84
[2016-10-25] MEDS ORDERED: BENTYL20 MG PO (14:10)
[2016-10-25] MEDS ORDERED: CIPRO500 MG PO (14:16)
== END 2016-10-25 17:06 | disposition home or self-care (01) ==
LOC: EME 17:56 → EDOF 21:55 → ENRESERV 21:55 → EDOF 21:55 → 5WEST 21:55 → ENRESERV 22:09 → 5WEST 23:00
PROVIDERS: Hospitalist; Nurse Practitioner Family
DX: K29.70 Gastritis, unspecified, without bleeding (principal); R11.2 Nausea with vomiting, unspecified; R10.9 Unspecified abdominal pain; Z88.0 Allergy status to penicillin; Z91.040 Latex allergy status; Z88.1 Allergy status to other antibiotic agents; Z88.5 Allergy status to narcotic agent; Z88.8 Allergy status to other drugs, medicaments and biological substances; Z91.09 Other allergy status, other than to drugs and biological substances; Z79.891 Long term (current) use of opiate analgesic; E66.9 Obesity, unspecified; Z68.38 Body mass index [BMI] 38.0-38.9, adult
CPT/HCPCS: 74020; 74176; 80048; 80053; 81003; 83690; 84702; 85025; 85027; 87077; 87086; 87186; 87641; 99281; 99285; C9113; G0378; J1170; J1630; J1650; J2270; J2405; J2550; J2765; J3010; J7030; S0028

== ENCOUNTER 2016-11-15 08:00 | Inpatient (IN) | payer OTHER ==
[~2016-11-15] VITALS: Ht 167.6 cm; Wt 104.3 kg
[~2016-11-15 08:00] MED LIST changes: +BENTYL20 MG PO
[2016-11-15 09:47] LABS: EOSINOPHIL (%) 0 % (0-5); HEMATOCRIT 42.5 % (36.0-46.0); IMMATURE GRANULOCYTE (%) 0.4 % (0.0-0.7); IMMATURE GRANULOCYTE COUNT 0.1 K/uL; INSTRUMENT ABS NEUTROPHIL CT 9.8 K/uL; LYMPHOCYTE COUNT 1.3 K/uL (1.0-2.8); MCH 29.3 PG (29.0-34.0); MCHC 33.4 G/DL (30.0-36.0); MCV 87.6 FL (83-99); MONOCYTE (%) 1.1 % (3-12); MONOCYTE COUNT 0.1 K/uL (0-0.8); NEUTROPHIL (%) 86.8 % (45-76); NEUTROPHIL COUNT 9.8 K/uL (1.8-6.4); PLATELET COUNT 315 K/uL (156-360); RBC DIS.WIDTH-CV 12.7 % (11.8-14.6); RBC DIS.WIDTH-SD 40.7 % (39-53); RED BLOOD COUNT 4.85 M/uL (3.80-5.20); WHITE BLOOD COUNT 11.3 K/uL (4.1-10.2)
[2016-11-15 09:58] LABS: CHLORIDE 109 mEq/L (99-109); POTASSIUM 3.6 mEq/L (3.7-5.4); SODIUM 144 mEq/L (136-147)
[2016-11-15 10:00] LABS: GLUCOSE 151 mg/dL (70-99)
[2016-11-15 10:02] LABS: ANION GAP 12 MEQ/L (2-14); TOTAL BILIRUBIN 0.4 mg/dL (0.0-1.0)
[2016-11-15 10:04] LABS: ALKALINE PHOSPHATASE 97 IU/L (3-129); GFR ESTIMATE (CALCULATED) > 59 mL/min/
[2016-11-15 10:05] LABS: UREA NITROGEN (BUN) 13 mg/dL (9-23)
[2016-11-15 10:07] LABS: LIPASE 13 U/L (1.0-51.0)
[2016-11-15 14:05] VITALS: BP 196/97
[2016-11-15 19:00] VITALS: BP 142/90
[2016-11-15 20:29] VITALS: BP 170/90
[2016-11-16 00:15] VITALS: BP 99/60
[2016-11-16 04:37] VITALS: BP 122/76
[2016-11-16 05:46] LABS: ANION GAP 9 MEQ/L (2-14); CHLORIDE 106 MEQ/L (99-109); GFR ESTIMATE (CALCULATED) > 59 mL/min/; GLUCOSE 115 mg/dL (70-99); POTASSIUM 3.4 MEQ/L (3.7-5.4); SAMPLE HEMOLYSIS CHECK 0; SAMPLE ICTERIC CHECK 0; SAMPLE LIPEMIA CHECK 0; SODIUM 142 MEQ/L (136-147); UREA NITROGEN (BUN) 13 mg/dL (9-23)
[2016-11-16 08:23] VITALS: BP 136/77
[2016-11-16 10:50] VITALS: BP 154/83
== END 2016-11-16 11:24 | disposition left against medical advice (07) | DRG 392 ==
LOC: EME 08:00 → EDOF 11:45 → 5WEST 11:45 → EDOF 11:45 → ENRESERV 11:57 → EDOF 12:00 → ENRESERV 12:05 → 5WEST 14:01 → ENRESERV 11-16 10:40 → 5WEST 11-16 11:24
PROVIDERS: Emergency Medicine; Internal Medicine
DX: R11.2 Nausea with vomiting, unspecified (principal); R10.13 Epigastric pain; R19.7 Diarrhea, unspecified; K31.84 Gastroparesis; F31.9 Bipolar disorder, unspecified; G89.29 Other chronic pain; I10 Essential (primary) hypertension; K21.9 Gastro-esophageal reflux disease without esophagitis; J45.909 Unspecified asthma, uncomplicated; F41.9 Anxiety disorder, unspecified; G43.909 Migraine, unspecified, not intractable, without status migrainosus; F17.200 Nicotine dependence, unspecified, uncomplicated; Z88.0 Allergy status to penicillin; Z91.040 Latex allergy status; Z88.5 Allergy status to narcotic agent; Z79.891 Long term (current) use of opiate analgesic
CPT/HCPCS: 80048; 80053; 80306 90; 83690; 85025; 99281; 99285; G0378; J0360; J1650; J1885; J2060; J2405; J2765; J3010; J7030; S0028

== ENCOUNTER 2016-12-21 18:46 | Emergency (ER) | payer OTHER ==
[~2016-12-21] VITALS: Ht 167.6 cm; Wt 107.7 kg
[2016-12-21 19:56] LABS: ADD MIUA? YES; BILIRUBIN NEGATIVE; BLOOD NEGATIVE; COLOR YELLOW ((YELLOW)); GLUCOSE (STRIP) NEGATIVE; KETONES NEGATIVE; LEUKOCYTES NEGATIVE; NITRITE NEGATIVE; PROTEIN (STRIP) 100; SPECIFIC GRAVITY 1.014 (1.000-1.030); UROBILINOGEN 0.2 MG/DL (0.2-1.0)
[2016-12-21 20:13] LABS: HEMATOCRIT 34.7 % (36.0-46.0); MCH 28.9 PG (29.0-34.0); MCV 84.8 FL (83-99); MEAN PLAT.VOLUME 9.8 uM^3 (9.5-12.4); PLATELET COUNT 128 K/uL (156-360); RBC DIS.WIDTH-CV 13.1 % (11.8-14.6); RBC DIS.WIDTH-SD 40.9 % (39-53); RED BLOOD COUNT 4.09 M/uL (3.80-5.20); WHITE BLOOD COUNT 16.7 K/uL (4.1-10.2)
[2016-12-21 20:28] LABS: BACTERIA NONE SEEN /HPF; EPITHELIAL CELLS 1+ /HPF; MUCUS TRACE /LPF; UCUL ADDED? YES; WHITE BLOOD CELLS 20-30 /HPF (0-5)
[2016-12-21 20:38] LABS: CHLORIDE 102 mEq/L (99-109); POTASSIUM 3.2 mEq/L (3.7-5.4); SODIUM 134 mEq/L (136-147)
[2016-12-21 20:40] LABS: GLUCOSE 143 mg/dL (70-99)
[2016-12-21 20:41] LABS: ANION GAP 10 MEQ/L (2-14)
[2016-12-21 20:42] LABS: TOTAL BILIRUBIN 0.9 mg/dL (0.0-1.0)
[2016-12-21 20:44] LABS: ALKALINE PHOSPHATASE 96 IU/L (3-129); GFR ESTIMATE (CALCULATED) 50 mL/min/
[2016-12-21 20:45] LABS: UREA NITROGEN (BUN) 13 mg/dL (9-23)
[2016-12-21 20:46] LABS: QUANTITATIVE HCG < 4.0 MIU/ML
[2016-12-21] MEDS ORDERED: CIPRO500 MG PO (22:19)
[2016-12-21] MEDS ORDERED: PERCOCET 5/31 TABLET PO (22:19)
[2016-12-21] MEDS ORDERED: ZOFRAN ODT4 MG PO (22:19)
[2016-12-21 22:38] VITALS: BP 132/88
== END 2016-12-21 22:48 | disposition home or self-care (01) ==
LOC: EME 18:46
DX: B34.9 Viral infection, unspecified (principal); N12 Tubulo-interstitial nephritis, not specified as acute or chronic; N20.1 Calculus of ureter; Z87.442 Personal history of urinary calculi; F17.200 Nicotine dependence, unspecified, uncomplicated; I10 Essential (primary) hypertension; K21.9 Gastro-esophageal reflux disease without esophagitis; Z88.0 Allergy status to penicillin; Z91.040 Latex allergy status; Z88.1 Allergy status to other antibiotic agents; Z88.5 Allergy status to narcotic agent
CPT/HCPCS: 74176; 80053; 81003; 84702; 85027; 87077; 87086; 87186; 99281; 99284; J1885; J2405; J3010; J7030

== ENCOUNTER 2016-12-23 19:27 | Inpatient (IN) | payer OTHER ==
[~2016-12-23] VITALS: Ht 167.6 cm; Wt 108.6 kg
[2016-12-23 21:20] LABS: HEMATOCRIT 34.2 % (36.0-46.0); MCHC 33.9 G/DL (30.0-36.0); MCV 85.5 FL (83-99); MEAN PLAT.VOLUME 10.7 uM^3 (9.5-12.4); PLATELET COUNT 181 K/uL (156-360); RBC DIS.WIDTH-CV 13.7 % (11.8-14.6); RBC DIS.WIDTH-SD 43.1 % (39-53); WHITE BLOOD COUNT 21.9 K/uL (4.1-10.2)
[2016-12-23 21:30] LABS: CHLORIDE 102 mEq/L (99-109); POTASSIUM 3.1 mEq/L (3.7-5.4); SODIUM 136 mEq/L (136-147)
[2016-12-23 21:32] LABS: GLUCOSE 134 mg/dL (70-99)
[2016-12-23 21:33] LABS: ANION GAP 15 MEQ/L (2-14)
[2016-12-23 21:34] LABS: TOTAL BILIRUBIN 0.3 mg/dL (0.0-1.0)
[2016-12-23 21:35] LABS: ALKALINE PHOSPHATASE 102 IU/L (3-129)
[2016-12-23 21:36] LABS: GFR ESTIMATE (CALCULATED) 32 mL/min/
[2016-12-23 21:37] LABS: UREA NITROGEN (BUN) 27 mg/dL (9-23)
[2016-12-23 21:42] LABS: ADD MIUA? YES; BILIRUBIN NEGATIVE; BLOOD SMALL; COLOR YELLOW ((YELLOW)); GLUCOSE (STRIP) NEGATIVE; KETONES NEGATIVE; LEUKOCYTES SMALL; NITRITE POSITIVE; PROTEIN (STRIP) >=500; SPECIFIC GRAVITY 1.022 (1.000-1.030); UROBILINOGEN 0.2 MG/DL (0.2-1.0)
[2016-12-23 21:45] LABS: BACTERIA RARE /HPF; EPITHELIAL CELLS 2+ /HPF; HYALINE CASTS 0-5 /LPF; MUCUS TRACE /LPF; UCUL ADDED? YES; WHITE BLOOD CELLS TNTC /HPF (0-5)
[2016-12-24 03:06] VITALS: BP 122/74
[2016-12-24 07:02] LABS: EOSINOPHIL (%) 0.1 % (0-5); HEMATOCRIT 31.5 % (36.0-46.0); IMMATURE GRANULOCYTE (%) 0.6 % (0.0-0.7); IMMATURE GRANULOCYTE COUNT 0.1 K/uL; INSTRUMENT ABS NEUTROPHIL CT 10.7 K/uL; LYMPHOCYTE COUNT 1.2 K/uL (1.0-2.8); MCH 28.5 PG (29.0-34.0); MCHC 33.3 G/DL (30.0-36.0); MCV 85.6 FL (83-99); MEAN PLAT.VOLUME 10.7 uM^3 (9.5-12.4); MONOCYTE (%) 6.6 % (3-12); MONOCYTE COUNT 0.9 K/uL (0-0.8); NEUTROPHIL (%) 83.1 % (45-76); NEUTROPHIL COUNT 10.7 K/uL (1.8-6.4); PLATELET COUNT 157 K/uL (156-360); RBC DIS.WIDTH-CV 13.8 % (11.8-14.6); RBC DIS.WIDTH-SD 43.7 % (39-53); RED BLOOD COUNT 3.68 M/uL (3.80-5.20); WHITE BLOOD COUNT 12.9 K/uL (4.1-10.2)
[2016-12-24 07:20] LABS: ANION GAP 11 MEQ/L (2-14); CHLORIDE 104 MEQ/L (99-109); GFR ESTIMATE (CALCULATED) 42 mL/min/; GLUCOSE 124 mg/dL (70-99); POTASSIUM 3.4 MEQ/L (3.7-5.4); SAMPLE HEMOLYSIS CHECK 0; SAMPLE ICTERIC CHECK 0; SAMPLE LIPEMIA CHECK 0; SODIUM 138 MEQ/L (136-147); UREA NITROGEN (BUN) 24 mg/dL (9-23)
[2016-12-24 07:45] VITALS: BP 189/86
[2016-12-24 15:55] VITALS: BP 179/78
[2016-12-24 20:36] VITALS: BP 174/84
[2016-12-25 01:02] VITALS: BP 142/83
[2016-12-25 03:33] VITALS: BP 151/84
[2016-12-25 05:16] LABS: C DIFF TOXIN NEGATIVE (NEGATIVE)
[2016-12-25 05:17] LABS: PROBE CHECK PASS; SPECIMEN PROCESSING CONTROL PASS
[2016-12-25 07:03] LABS: EOSINOPHIL (%) 0.1 % (0-5); HEMATOCRIT 29.2 % (36.0-46.0); IMMATURE GRANULOCYTE (%) 0.9 % (0.0-0.7); IMMATURE GRANULOCYTE COUNT 0.1 K/uL; INSTRUMENT ABS NEUTROPHIL CT 8.5 K/uL; LYMPHOCYTE COUNT 1.1 K/uL (1.0-2.8); MCH 28.4 PG (29.0-34.0); MCHC 32.9 G/DL (30.0-36.0); MCV 86.4 FL (83-99); MEAN PLAT.VOLUME 10.6 uM^3 (9.5-12.4); MONOCYTE (%) 8.5 % (3-12); MONOCYTE COUNT 0.9 K/uL (0-0.8); NEUTROPHIL (%) 80.1 % (45-76); NEUTROPHIL COUNT 8.5 K/uL (1.8-6.4); PLATELET COUNT 156 K/uL (156-360); RED BLOOD COUNT 3.38 M/uL (3.80-5.20); WHITE BLOOD COUNT 10.6 K/uL (4.1-10.2)
[2016-12-25 07:15] VITALS: BP 147/83
[2016-12-25 07:34] LABS: ANION GAP 9 MEQ/L (2-14); CHLORIDE 103 MEQ/L (99-109); GFR ESTIMATE (CALCULATED) > 59 mL/min/; GLUCOSE 141 mg/dL (70-99); POTASSIUM 3.2 MEQ/L (3.7-5.4); SAMPLE HEMOLYSIS CHECK 0; SAMPLE ICTERIC CHECK 0; SAMPLE LIPEMIA CHECK 0; SODIUM 136 MEQ/L (136-147); UREA NITROGEN (BUN) 10 mg/dL (9-23)
[2016-12-25 12:33] VITALS: BP 185/95
[2016-12-26 06:56] LABS: EOSINOPHIL (%) 0.2 % (0-5); HEMATOCRIT 30.5 % (36.0-46.0); IMMATURE GRANULOCYTE (%) 0.8 % (0.0-0.7); IMMATURE GRANULOCYTE COUNT 0.1 K/uL; INSTRUMENT ABS NEUTROPHIL CT 8.7 K/uL; LYMPHOCYTE COUNT 1.2 K/uL (1.0-2.8); MCH 28.7 PG (29.0-34.0); MCHC 33.8 G/DL (30.0-36.0); MONOCYTE (%) 8.1 % (3-12); MONOCYTE COUNT 0.9 K/uL (0-0.8); NEUTROPHIL (%) 79.6 % (45-76); NEUTROPHIL COUNT 8.7 K/uL (1.8-6.4); RBC DIS.WIDTH-CV 13.4 % (11.8-14.6); RBC DIS.WIDTH-SD 42.2 % (39-53); RED BLOOD COUNT 3.59 M/uL (3.80-5.20); WHITE BLOOD COUNT 10.9 K/uL (4.1-10.2)
[2016-12-26 06:57] LABS: PLATELET COUNT 252 K/uL (156-360)
[2016-12-26 07:01] VITALS: BP 162/75
[2016-12-26 07:14] LABS: ANION GAP 10 MEQ/L (2-14); CHLORIDE 100 MEQ/L (99-109); GFR ESTIMATE (CALCULATED) > 59 mL/min/; GLUCOSE 112 mg/dL (70-99); POTASSIUM 3.4 MEQ/L (3.7-5.4); SAMPLE HEMOLYSIS CHECK 0; SAMPLE ICTERIC CHECK 0; SAMPLE LIPEMIA CHECK 0; SODIUM 138 MEQ/L (136-147); UREA NITROGEN (BUN) 8 mg/dL (9-23)
[2016-12-26 15:15] VITALS: BP 163/95
[2016-12-26 23:19] VITALS: BP 108/58
[2016-12-27 07:15] VITALS: BP 142/77
[2016-12-27 07:19] LABS: EOSINOPHIL (%) 0.6 % (0-5); EOSINOPHIL COUNT 0.1 K/uL (0-0.3); HEMATOCRIT 36.3 % (36.0-46.0); IMMATURE GRANULOCYTE (%) 0.9 % (0.0-0.7); IMMATURE GRANULOCYTE COUNT 0.1 K/uL; INSTRUMENT ABS NEUTROPHIL CT 11.4 K/uL; LYMPHOCYTE COUNT 1.2 K/uL (1.0-2.8); MCH 28.9 PG (29.0-34.0); MCHC 33.9 G/DL (30.0-36.0); MCV 85.4 FL (83-99); MEAN PLAT.VOLUME 9.7 uM^3 (9.5-12.4); MONOCYTE (%) 6.7 % (3-12); MONOCYTE COUNT 0.9 K/uL (0-0.8); NEUTROPHIL (%) 82.9 % (45-76); NEUTROPHIL COUNT 11.4 K/uL (1.8-6.4); RBC DIS.WIDTH-CV 13.7 % (11.8-14.6); RBC DIS.WIDTH-SD 42.6 % (39-53); RED BLOOD COUNT 4.25 M/uL (3.80-5.20); WHITE BLOOD COUNT 13.8 K/uL (4.1-10.2)
[2016-12-27 07:20] LABS: PLATELET COUNT 338 K/uL (156-360)
[2016-12-27 07:43] LABS: ANION GAP 12 MEQ/L (2-14); CHLORIDE 97 MEQ/L (99-109); GFR ESTIMATE (CALCULATED) > 59 mL/min/; GLUCOSE 120 mg/dL (70-99); POTASSIUM 4.1 MEQ/L (3.7-5.4); SAMPLE HEMOLYSIS CHECK 0; SAMPLE ICTERIC CHECK 0; SAMPLE LIPEMIA CHECK 0; SODIUM 138 MEQ/L (136-147); UREA NITROGEN (BUN) 10 mg/dL (9-23)
== END 2016-12-27 14:56 | disposition home health service (06) | DRG 872 ==
LOC: EME 19:27 → 2EAST 12-24 01:10 → EDOF 12-24 01:10 → ENRESERV 12-24 01:13 → 2EAST 12-24 02:52
PROVIDERS: Hospitalist
PROC: 06HY33Z Insertion of Infusion Device into Lower Vein, Percutaneous Approach (ICD-10-PCS; principal; 2016-12-27)
DX: A41.51 Sepsis due to Escherichia coli [E. coli] (principal); N10 Acute pyelonephritis; N13.30 Unspecified hydronephrosis; F11.20 Opioid dependence, uncomplicated; N20.1 Calculus of ureter; F33.9 Major depressive disorder, recurrent, unspecified; N17.9 Acute kidney failure, unspecified; N30.00 Acute cystitis without hematuria; E87.6 Hypokalemia; F12.90 Cannabis use, unspecified, uncomplicated; F17.210 Nicotine dependence, cigarettes, uncomplicated; G89.4 Chronic pain syndrome; D64.9 Anemia, unspecified; I10 Essential (primary) hypertension; J45.909 Unspecified asthma, uncomplicated; K21.9 Gastro-esophageal reflux disease without esophagitis; K31.84 Gastroparesis; Z87.442 Personal history of urinary calculi; Z16.23 Resistance to quinolones and fluoroquinolones; Z82.49 Family history of ischemic heart disease and other diseases of the circulatory system; Z88.1 Allergy status to other antibiotic agents; Z87.440 Personal history of urinary (tract) infections; Z88.0 Allergy status to penicillin; Z88.5 Allergy status to narcotic agent; Z91.040 Latex allergy status; Z88.6 Allergy status to analgesic agent
CPT/HCPCS: 74176; 80048; 80053; 81003; 85025; 85027; 87040; 87077; 87086; 87186; 87493; 87801; 99281; 99285; C1894; J0360; J0696; J0780; J1170; J1630; J1650; J1885; J2270; J2405; J2543; J3010; J7030; J7050

== ENCOUNTER 2017-01-10 11:18 | Inpatient (IN) | payer OTHER ==
[~2017-01-10] VITALS: Ht 167.6 cm; Wt 104.0 kg
[2017-01-10 12:44] LABS: HEMATOCRIT 42.8 % (36.0-46.0); MCH 28.8 PG (29.0-34.0); MCHC 34.1 G/DL (30.0-36.0); MCV 84.4 FL (83-99); MEAN PLAT.VOLUME 9.3 uM^3 (9.5-12.4); PLATELET COUNT 300 K/uL (156-360); RBC DIS.WIDTH-CV 13.4 % (11.8-14.6); RBC DIS.WIDTH-SD 40.8 % (39-53); RED BLOOD COUNT 5.07 M/uL (3.80-5.20); WHITE BLOOD COUNT 11.5 K/uL (4.1-10.2)
[2017-01-10 12:50] LABS: ADD MIUA? YES; BILIRUBIN NEGATIVE; BLOOD SMALL; COLOR YELLOW ((YELLOW)); GLUCOSE (STRIP) NEGATIVE; KETONES NEGATIVE; LEUKOCYTES SMALL; NITRITE NEGATIVE; PROTEIN (STRIP) 100; SPECIFIC GRAVITY 1.038 (1.000-1.030); UROBILINOGEN 0.2 MG/DL (0.2-1.0)
[2017-01-10 12:52] LABS: CHLORIDE 101 mEq/L (99-109); POTASSIUM 3.4 mEq/L (3.7-5.4); SODIUM 140 mEq/L (136-147)
[2017-01-10 12:53] LABS: GLUCOSE 124 mg/dL (70-99)
[2017-01-10 12:55] LABS: ANION GAP 16 MEQ/L (2-14)
[2017-01-10 12:57] LABS: GFR ESTIMATE (CALCULATED) > 59 mL/min/
[2017-01-10 12:58] LABS: UREA NITROGEN (BUN) 11 mg/dL (9-23)
[2017-01-10 12:59] LABS: BACTERIA RARE /HPF; CALCIUM OXALATE CRYSTALS 2+ /HPF; EPITHELIAL CELLS 1+ /HPF; MUCUS TRACE /LPF; RED BLOOD CELLS 40-50 /HPF (0-5); UCUL ADDED? YES; WHITE BLOOD CELLS 20-30 /HPF (0-5)
[2017-01-10 15:05] LABS: TOTAL BILIRUBIN 0.4 mg/dL (0.0-1.0)
[2017-01-10 15:06] LABS: ALKALINE PHOSPHATASE 112 IU/L (3-129)
[2017-01-10 15:08] LABS: DIRECT BILIRUBIN 0.2 mg/dL (0.0-0.3)
[2017-01-10 15:09] LABS: LIPASE 28 U/L (1.0-51.0)
[2017-01-10 16:57] LABS: BASOPHIL COUNT 0.1 K/uL (0-0.1); EOSINOPHIL (%) 0.7 % (0-5); EOSINOPHIL COUNT 0.1 K/uL (0-0.3); IMMATURE GRANULOCYTE (%) 0.3 % (0.0-0.7); INSTRUMENT ABS NEUTROPHIL CT 8.6 K/uL; LYMPHOCYTE COUNT 2.3 K/uL (1.0-2.8); MONOCYTE (%) 3.8 % (3-12); MONOCYTE COUNT 0.4 K/uL (0-0.8); NEUTROPHIL (%) 74.9 % (45-76); NEUTROPHIL COUNT 8.6 K/uL (1.8-6.4)
[2017-01-10] MEDS ORDERED: LAMOTRIGINE150 MG PO (17:40)
[2017-01-10 19:12] LABS: QUANTITATIVE HCG < 4.0 MIU/ML
[2017-01-10 21:00] VITALS: BP 103/55
[2017-01-10 22:35] LABS: AMPHETAMINES QUANT VALUE 0 NG/ML; BARBITUATES QUANT VALUE 0 NG/ML; BENZODIAZEPINES, URINE SCREEN POSITIVE (200 ng/mL); MARIJUANA QUANT VALUE 0 NG/ML; OPIATES QUANTITATIVE VALUE 0 NG/ML; PHENCYCLIDINE QUANT VALUE 0 NG/ML
[2017-01-11] VITALS (7 sets, daily range): BP systolic 98–162; BP diastolic 57–107
[2017-01-11 05:26] LABS: HEMATOCRIT 34.5 % (36.0-46.0); MCH 29.4 PG (29.0-34.0); MCHC 33.6 G/DL (30.0-36.0); MCV 87.3 FL (83-99); MEAN PLAT.VOLUME 9.2 uM^3 (9.5-12.4); PLATELET COUNT 215 K/uL (156-360); RBC DIS.WIDTH-CV 13.8 % (11.8-14.6); RBC DIS.WIDTH-SD 43.5 % (39-53); WHITE BLOOD COUNT 9.2 K/uL (4.1-10.2)
[2017-01-11 05:29] LABS: RED BLOOD COUNT 3.95 M/uL (3.80-5.20)
[2017-01-11 05:45] LABS: ANION GAP 8 MEQ/L (2-14); CHLORIDE 100 MEQ/L (99-109); GFR ESTIMATE (CALCULATED) > 59 mL/min/; POTASSIUM 3.9 MEQ/L (3.7-5.4); SAMPLE HEMOLYSIS CHECK 0; SAMPLE ICTERIC CHECK 0; SAMPLE LIPEMIA CHECK 0; SODIUM 134 MEQ/L (136-147); UREA NITROGEN (BUN) 10 mg/dL (9-23)
[2017-01-11 05:52] LABS: GLUCOSE 86 mg/dL (70-99)
[2017-01-12 02:45] VITALS: BP 127/78
[2017-01-12 08:00] VITALS: BP 158/72
[2017-01-12 12:48] VITALS: BP 158/77
[2017-01-12] MEDS ORDERED: NITROFURANTOIN50 MG PO (14:05)
[2017-01-12] MEDS ORDERED: PERCOCET 10/1 TABLET PO (14:08)
== END 2017-01-12 16:57 | disposition home or self-care (01) | DRG 305 ==
LOC: EME 11:18 → 4EAST 18:32 → EDOF 18:32 → ENRESERV 18:34 → 4EAST 21:05 → ENPENDDIS 01-12 → 4EAST 01-12 16:57
PROVIDERS: Internal Medicine
DX: I16.0 Hypertensive urgency (principal); E87.6 Hypokalemia; K52.9 Noninfective gastroenteritis and colitis, unspecified; F11.20 Opioid dependence, uncomplicated; F12.90 Cannabis use, unspecified, uncomplicated; F17.210 Nicotine dependence, cigarettes, uncomplicated; F31.9 Bipolar disorder, unspecified; G89.4 Chronic pain syndrome; I10 Essential (primary) hypertension; J45.909 Unspecified asthma, uncomplicated; K21.9 Gastro-esophageal reflux disease without esophagitis; K31.84 Gastroparesis; Z87.442 Personal history of urinary calculi; R32 Unspecified urinary incontinence; Z91.19 Patient's noncompliance with other medical treatment and regimen; Z87.440 Personal history of urinary (tract) infections; F10.10 Alcohol abuse, uncomplicated; G43.909 Migraine, unspecified, not intractable, without status migrainosus; E66.01 Morbid (severe) obesity due to excess calories; Z68.34 Body mass index [BMI] 34.0-34.9, adult
CPT/HCPCS: 70450; 71010; 74022; 74177; 80048; 80076; 80306 90; 81003; 83605; 83690; 84702; 85025; 85027; 87040; 87086; 90686; 99281; 99285; C9113; J0360; J1650; J1885; J2060; J2765; J3010; J7030; J7050; S0028

== ENCOUNTER 2017-01-22 20:19 | Observation (INO) | payer OTHER ==
[~2017-01-22] VITALS: Ht 167.6 cm; Wt 100.5 kg
[~2017-01-22 20:19] MED LIST changes: +LAMICTAL200 MG PO; +NITROFURANTOIN50 MG PO
[2017-01-22 21:16] LABS: MCH 29.2 PG (29.0-34.0); MCHC 33.5 G/DL (30.0-36.0); MCV 87.1 FL (83-99); PLATELET COUNT 255 K/uL (156-360); RBC DIS.WIDTH-CV 14.7 % (11.8-14.6); RBC DIS.WIDTH-SD 46.6 % (39-53); RED BLOOD COUNT 4.59 M/uL (3.80-5.20); WHITE BLOOD COUNT 10.8 K/uL (4.1-10.2)
[2017-01-22 21:33] LABS: CHLORIDE 115 mEq/L (99-109); POTASSIUM 3.6 mEq/L (3.7-5.4); SODIUM 144 mEq/L (136-147)
[2017-01-22 21:35] LABS: GLUCOSE 127 mg/dL (70-99)
[2017-01-22 21:36] LABS: ANION GAP 11 MEQ/L (2-14)
[2017-01-22 21:37] LABS: TOTAL BILIRUBIN 0.3 mg/dL (0.0-1.0)
[2017-01-22 21:38] LABS: ALKALINE PHOSPHATASE 99 IU/L (3-129)
[2017-01-22 21:39] LABS: GFR ESTIMATE (CALCULATED) > 59 mL/min/
[2017-01-22 21:40] LABS: UREA NITROGEN (BUN) 13 mg/dL (9-23)
[2017-01-22 21:42] LABS: LIPASE 15 U/L (1.0-51.0)
[2017-01-22 21:49] LABS: QUANTITATIVE HCG < 4.0 MIU/ML
[2017-01-22 23:29] LABS: ADD MIUA? YES; BILIRUBIN NEGATIVE; BLOOD NEGATIVE; COLOR YELLOW ((YELLOW)); GLUCOSE (STRIP) NEGATIVE; KETONES NEGATIVE; LEUKOCYTES SMALL; NITRITE NEGATIVE; PROTEIN (STRIP) 30; UROBILINOGEN 0.2 MG/DL (0.2-1.0)
[2017-01-22 23:34] LABS: BACTERIA 3+ /HPF; EPITHELIAL CELLS 1+ /HPF; HYALINE CASTS 0-5 /LPF; MUCUS 1+ /LPF; UCUL ADDED? YES; WHITE BLOOD CELLS 0-5 /HPF (0-5)
[2017-01-23] MEDS ORDERED: ZYRTEC10 M3 PO (00:52)
[2017-01-23] MEDS ORDERED: ZOFRAN4 MG PO ×2 (00:52→14:43)
[2017-01-23] MEDS ORDERED: TOPAMAX100 MG PO (00:52)
[2017-01-23] MEDS ORDERED: PAXIL40 MG PO (00:53)
[2017-01-23] MEDS ORDERED: VENTOLIN HFA18 GM IH (00:53)
[2017-01-23 01:50] LABS: AMPHETAMINE NEGATIVE (500 ng/mL); BARBITURATES NEGATIVE (200 ng/mL); BENZODIAZEPINES PRESUMPTIVE POSITIVE (150 ng/mL); COCAINE NEGATIVE (150 ng/mL); INTERNAL CONTROLS VALID? YES; METHADONE NEGATIVE (200 ng/mL); METHAMPHETAMINE NEGATIVE (500 ng/mL); OPIATES (MORPHINE) NEGATIVE (100 ng/mL); OXYCODONE PRESUMPTIVE POSITIVE (100 ng/mL); PHENCYCLIDINE NEGATIVE (25 ng/mL); PROPOXYPHENE NEGATIVE (300 ng/mL); THC CANNABINOIDS NEGATIVE (50 ng/mL); TRICYCLIC ANTIDEPRESSANTS NEGATIVE (300 ng/mL)
[2017-01-23 01:51] LABS: ADD MEDTOX COMMENT Y
[2017-01-23 02:03] VITALS: BP 185/93
[2017-01-23 03:31] VITALS: BP 136/75
[2017-01-23 05:44] LABS: BENZODIAZEPINES QUANT VALUE 0 NG/ML; BENZODIAZEPINES, URINE SCREEN Negative (200 ng/mL)
[2017-01-23 08:25] VITALS: BP 188/95
[2017-01-23 11:47] VITALS: BP 122/65
[2017-01-23] MEDS ORDERED: BENTYL20 MG PO (13:42)
[2017-01-23] MEDS ORDERED: ENDOCET 5-3251 EACH PO (13:43)
[2017-01-23] MEDS ORDERED: FLORASTOR250 MG PO (14:43)
== END 2017-01-23 16:16 | disposition home or self-care (01) ==
LOC: EME 20:19 → ENPENDDIS 01-23 → EDOF 01-23 01:07 → ENRESERV 01-23 01:10 → 5WEST 01-23 01:57
PROVIDERS: Emergency Medicine
DX: R10.13 Epigastric pain (principal); G89.4 Chronic pain syndrome; R11.2 Nausea with vomiting, unspecified; K22.10 Ulcer of esophagus without bleeding; K21.0 Gastro-esophageal reflux disease with esophagitis; K29.70 Gastritis, unspecified, without bleeding; K25.9 Gastric ulcer, unspecified as acute or chronic, without hemorrhage or perforation; K31.84 Gastroparesis; M54.9 Dorsalgia, unspecified; N39.0 Urinary tract infection, site not specified; E87.6 Hypokalemia; Z87.442 Personal history of urinary calculi; I10 Essential (primary) hypertension; J45.909 Unspecified asthma, uncomplicated; F32.9 Major depressive disorder, single episode, unspecified; F41.9 Anxiety disorder, unspecified; E66.9 Obesity, unspecified; Z68.35 Body mass index [BMI] 35.0-35.9, adult; F11.10 Opioid abuse, uncomplicated; F10.10 Alcohol abuse, uncomplicated; F14.10 Cocaine abuse, uncomplicated; F12.10 Cannabis abuse, uncomplicated; F17.200 Nicotine dependence, unspecified, uncomplicated; Z90.49 Acquired absence of other specified parts of digestive tract; Z98.51 Tubal ligation status; Z88.0 Allergy status to penicillin; Z91.040 Latex allergy status
CPT/HCPCS: 80053; 81003; 83690; 84702; 84999; 85027; 87077; 87086; 87186; 94760; 99202; 99281; 99285; C9113; G0378; J1630; J2060; J2405; J2765; J3010; J7030; J7050

== ENCOUNTER 2017-02-16 10:29 | Observation (INO) | payer OTHER ==
[~2017-02-16] VITALS: Ht 167.6 cm; Wt 102.0 kg
[~2017-02-16 10:29] MED LIST changes: +FLORASTOR250 MG PO; +PAXIL40 MG PO; +TOPAMAX100 MG PO; +VENTOLIN HFA18 GM IH; +ZYRTEC10 M3 PO
[2017-02-16 11:25] LABS: HEMATOCRIT 43.9 % (36.0-46.0); MCH 29.1 PG (29.0-34.0); MCHC 31.7 G/DL (30.0-36.0); MCV 91.8 FL (83-99); MEAN PLAT.VOLUME 9.3 uM^3 (9.5-12.4); PLATELET COUNT 278 K/uL (156-360); RBC DIS.WIDTH-CV 15.5 % (11.8-14.6); RED BLOOD COUNT 4.78 M/uL (3.80-5.20); WHITE BLOOD COUNT 12.4 K/uL (4.1-10.2)
[2017-02-16 11:32] LABS: CHLORIDE 110 mEq/L (99-109); SODIUM 143 mEq/L (136-147)
[2017-02-16 11:34] LABS: GLUCOSE 106 mg/dL (70-99)
[2017-02-16 11:36] LABS: ANION GAP 10 MEQ/L (2-14); TOTAL BILIRUBIN 0.3 mg/dL (0.0-1.0)
[2017-02-16 11:38] LABS: ALKALINE PHOSPHATASE 97 IU/L (3-129); GFR ESTIMATE (CALCULATED) > 59 mL/min/
[2017-02-16 11:39] LABS: UREA NITROGEN (BUN) 13 mg/dL (9-23)
[2017-02-16 11:41] LABS: LIPASE 36 U/L (1.0-51.0)
[2017-02-16 11:51] LABS: QUANTITATIVE HCG < 4.0 MIU/ML
[2017-02-16 15:21] LABS: ADD MIUA? YES; BILIRUBIN NEGATIVE; BLOOD NEGATIVE; COLOR YELLOW ((YELLOW)); GLUCOSE (STRIP) NEGATIVE; KETONES NEGATIVE; LEUKOCYTES TRACE; NITRITE POSITIVE; PROTEIN (STRIP) 30; SPECIFIC GRAVITY 1.017 (1.000-1.030); UROBILINOGEN 0.2 MG/DL (0.2-1.0)
[2017-02-16 15:58] LABS: RED BLOOD CELLS 0-5 /HPF (0-5)
[2017-02-16 15:59] LABS: BACTERIA 4+ /HPF; CRYSTALS PRESENT; EPITHELIAL CELLS 3+ /HPF; UCUL ADDED? YES
[2017-02-16 16:00] LABS: AMORPHOUS URATES CRYSTALS 1+; CALCIUM OXALATE CRYSTALS RARE /HPF
[2017-02-16 16:01] LABS: MUCUS TRACE /LPF
[2017-02-16] MEDS ORDERED: CARAFATE1 GM PO (16:21)
[2017-02-16] MEDS ORDERED: PHENERGAN25 MG PR (16:21)
[2017-02-16] MEDS ORDERED: PERCOCET 10/1 TABLET PO (17:21)
[2017-02-16] MEDS ORDERED: REQUIP0.25 MG PO (17:24)
[2017-02-16 17:53] LABS: AMPHETAMINES QUANT VALUE 0 NG/ML; BARBITUATES QUANT VALUE 0 NG/ML; BENZODIAZEPINES QUANT VALUE 0 NG/ML; BENZODIAZEPINES, URINE SCREEN Negative (200 ng/mL); PHENCYCLIDINE QUANT VALUE 0 NG/ML
[2017-02-16 18:33] VITALS: BP 165/104
[2017-02-17 00:25] VITALS: BP 148/80
[2017-02-17 03:53] VITALS: BP 91/52
[2017-02-17 04:57] LABS: HEMATOCRIT 34.6 % (36.0-46.0); MCH 29.1 PG (29.0-34.0); MCHC 32.1 G/DL (30.0-36.0); MCV 90.8 FL (83-99); MEAN PLAT.VOLUME 9.2 uM^3 (9.5-12.4); PLATELET COUNT 209 K/uL (156-360); RBC DIS.WIDTH-CV 15.1 % (11.8-14.6); RBC DIS.WIDTH-SD 50.4 % (39-53)
[2017-02-17 04:58] LABS: RED BLOOD COUNT 3.81 M/uL (3.80-5.20)
[2017-02-17 05:12] LABS: CHLORIDE 110 mEq/L (99-109); POTASSIUM 3.5 mEq/L (3.7-5.4); SODIUM 138 mEq/L (136-147)
[2017-02-17 05:14] LABS: GLUCOSE 99 mg/dL (70-99)
[2017-02-17 05:15] LABS: ANION GAP 6 MEQ/L (2-14)
[2017-02-17 05:17] LABS: TOTAL BILIRUBIN 0.4 mg/dL (0.0-1.0)
[2017-02-17 05:18] LABS: ALKALINE PHOSPHATASE 71 IU/L (3-129); GFR ESTIMATE (CALCULATED) > 59 mL/min/
[2017-02-17 05:19] LABS: UREA NITROGEN (BUN) 6 mg/dL (9-23)
[2017-02-17 07:20] VITALS: BP 94/53
[2017-02-17 12:00] VITALS: BP 104/87
[2017-02-17] MEDS ORDERED: SUCRALFATE1 GM PO (14:21)
[2017-02-17 14:31] VITALS: BP 112/59
[2017-02-17] MEDS ORDERED: OMEPRAZOLE40 M1 PO (14:38)
[2017-02-17] MEDS ORDERED: CARAFATE1 GM PO (14:38)
[2017-02-18 12:20] LABS: JO-1 ANTIBODY 190 U/mL (0-99); SM (SMITH) ANTIBODY 12 U/mL (0-99); SS-A (SJOGREN'S) ANTIBODY 16 U/mL (0-99); SS-B (SJOGREN'S) ANTIBODY 8 U/mL (0-99)
== END 2017-02-17 15:36 | disposition home or self-care (01) ==
LOC: EME 10:29 → EDOF 16:44 → ENRESERV 16:49 → 5WEST 18:15
PROVIDERS: Internal Medicine
DX: R10.84 Generalized abdominal pain (principal); R11.2 Nausea with vomiting, unspecified; K21.9 Gastro-esophageal reflux disease without esophagitis; G89.29 Other chronic pain; R82.71 Bacteriuria; D72.829 Elevated white blood cell count, unspecified; Z87.19 Personal history of other diseases of the digestive system; F17.210 Nicotine dependence, cigarettes, uncomplicated; E66.01 Morbid (severe) obesity due to excess calories; I10 Essential (primary) hypertension; Z87.440 Personal history of urinary (tract) infections; Z87.442 Personal history of urinary calculi; F31.9 Bipolar disorder, unspecified; J45.909 Unspecified asthma, uncomplicated; F19.11 Other psychoactive substance abuse, in remission; Z90.49 Acquired absence of other specified parts of digestive tract; F12.90 Cannabis use, unspecified, uncomplicated; R16.0 Hepatomegaly, not elsewhere classified; Z88.0 Allergy status to penicillin; Z88.1 Allergy status to other antibiotic agents; Z88.5 Allergy status to narcotic agent; Z91.040 Latex allergy status; Z88.8 Allergy status to other drugs, medicaments and biological substances
CPT/HCPCS: 74177; 80053; 80306 90; 81003; 83690; 84702; 85027; 86038; 86235; 87077; 87086; 87186; 99281; 99285; C9113; G0378; J0360; J0780; J1170; J1644; J2270; J2405; J3010; J7030; J7042

== ENCOUNTER 2017-02-24 11:40 | Emergency (ER) | payer OTHER ==
[~2017-02-24] VITALS: Ht 167.6 cm; Wt 101.5 kg
[~2017-02-24 11:40] MED LIST changes: +CARAFATE1 GM PO; +OMEPRAZOLE40 M1 PO; +PHENERGAN25 MG PR; +REQUIP0.25 MG PO; +SUCRALFATE1 GM PO
[2017-02-24 13:30] LABS: HEMATOCRIT 42.4 % (36.0-46.0); MCH 29.6 PG (29.0-34.0); MCHC 32.8 G/DL (30.0-36.0); MCV 90.2 FL (83-99); MEAN PLAT.VOLUME 9.4 uM^3 (9.5-12.4); PLATELET COUNT 255 K/uL (156-360); RBC DIS.WIDTH-CV 14.9 % (11.8-14.6); RBC DIS.WIDTH-SD 49.7 % (39-53)
[2017-02-24 13:43] LABS: ADD MIUA? YES; BILIRUBIN NEGATIVE; BLOOD MODERATE; COLOR YELLOW ((YELLOW)); GLUCOSE (STRIP) NEGATIVE; KETONES NEGATIVE; LEUKOCYTES NEGATIVE; NITRITE NEGATIVE; PROTEIN (STRIP) NEGATIVE; SPECIFIC GRAVITY 1.034 (1.000-1.030); UROBILINOGEN 0.2 MG/DL (0.2-1.0)
[2017-02-24 13:53] LABS: BACTERIA RARE /HPF; CALCIUM OXALATE CRYSTALS 1+ /HPF; EPITHELIAL CELLS 1+ /HPF; MUCUS 1+ /LPF; UCUL ADDED? NO; WHITE BLOOD CELLS 0-5 /HPF (0-5)
[2017-02-24 13:54] LABS: QUANTITATIVE HCG < 4.0 MIU/ML
[2017-02-24 14:17] LABS: ALKALINE PHOSPHATASE 82 IU/L (3-129); ANION GAP 14 MEQ/L (2-14); CHLORIDE 106 MEQ/L (99-109); GFR ESTIMATE (CALCULATED) > 59 mL/min/; GLUCOSE 97 mg/dL (70-99); POTASSIUM 4.1 MEQ/L (3.7-5.4); SAMPLE HEMOLYSIS CHECK 0; SAMPLE ICTERIC CHECK 0; SAMPLE LIPEMIA CHECK 0; SODIUM 140 MEQ/L (136-147); TOTAL BILIRUBIN 0.4 MG/DL (0.0-1.0); UREA NITROGEN (BUN) 15 mg/dL (9-23)
[2017-02-24 15:42] VITALS: BP 127/87
== END 2017-02-24 15:42 | disposition home or self-care (01) ==
LOC: EME 11:40
DX: N39.0 Urinary tract infection, site not specified (principal); K21.9 Gastro-esophageal reflux disease without esophagitis; F41.9 Anxiety disorder, unspecified; I10 Essential (primary) hypertension; F32.9 Major depressive disorder, single episode, unspecified; J45.909 Unspecified asthma, uncomplicated; G43.909 Migraine, unspecified, not intractable, without status migrainosus; F17.210 Nicotine dependence, cigarettes, uncomplicated; Z87.442 Personal history of urinary calculi; Z85.9 Personal history of malignant neoplasm, unspecified; Z88.0 Allergy status to penicillin; Z91.040 Latex allergy status; Z88.5 Allergy status to narcotic agent; Z88.1 Allergy status to other antibiotic agents; Z88.8 Allergy status to other drugs, medicaments and biological substances
CPT/HCPCS: 80053; 81003; 84702; 85027; 99281; 99285; J0696; J2270

== ENCOUNTER 2017-03-08 11:44 | Emergency (ER) | payer OTHER ==
[~2017-03-08] VITALS: Ht 167.6 cm; Wt 105.5 kg
[2017-03-08 12:31] LABS: HEMATOCRIT 42.4 % (36.0-46.0); MCV 90.8 FL (83-99); PLATELET COUNT 229 K/uL (156-360); RBC DIS.WIDTH-CV 14.9 % (11.8-14.6); RBC DIS.WIDTH-SD 49.9 % (39-53); RED BLOOD COUNT 4.67 M/uL (3.80-5.20); WHITE BLOOD COUNT 8.7 K/uL (4.1-10.2)
[2017-03-08 12:46] LABS: CHLORIDE 110 mEq/L (99-109); POTASSIUM 4.1 mEq/L (3.7-5.4); SODIUM 140 mEq/L (136-147)
[2017-03-08 12:48] LABS: GLUCOSE 95 mg/dL (70-99)
[2017-03-08 12:49] LABS: ANION GAP 7 MEQ/L (2-14)
[2017-03-08 12:50] LABS: TOTAL BILIRUBIN 0.4 mg/dL (0.0-1.0)
[2017-03-08 12:52] LABS: ALKALINE PHOSPHATASE 88 IU/L (3-129); GFR ESTIMATE (CALCULATED) > 59 mL/min/
[2017-03-08 12:53] LABS: UREA NITROGEN (BUN) 11 mg/dL (9-23)
[2017-03-08 13:00] LABS: QUANTITATIVE HCG < 4.0 MIU/ML
[2017-03-08 13:19] LABS: ADD MIUA? YES; BILIRUBIN NEGATIVE; BLOOD NEGATIVE; COLOR YELLOW ((YELLOW)); GLUCOSE (STRIP) NEGATIVE; KETONES NEGATIVE; LEUKOCYTES NEGATIVE; NITRITE NEGATIVE; PROTEIN (STRIP) NEGATIVE; SPECIFIC GRAVITY 1.016 (1.000-1.030); UROBILINOGEN 0.2 MG/DL (0.2-1.0)
[2017-03-08 13:37] LABS: BACTERIA RARE /HPF; EPITHELIAL CELLS 3+ /HPF; MUCUS TRACE /LPF; RED BLOOD CELLS 0-5 /HPF (0-5); UCUL ADDED? NO; WHITE BLOOD CELLS 0-5 /HPF (0-5)
[2017-03-08] MEDS ORDERED: PERCOCET 5/31 TABLET PO (16:23)
[2017-03-08 16:52] VITALS: BP 136/85
== END 2017-03-08 16:52 | disposition home or self-care (01) ==
LOC: EME 11:44
DX: R10.9 Unspecified abdominal pain (principal); K21.9 Gastro-esophageal reflux disease without esophagitis; I10 Essential (primary) hypertension; J45.909 Unspecified asthma, uncomplicated; F41.9 Anxiety disorder, unspecified; F32.9 Major depressive disorder, single episode, unspecified; F31.9 Bipolar disorder, unspecified; G43.909 Migraine, unspecified, not intractable, without status migrainosus; F17.200 Nicotine dependence, unspecified, uncomplicated; Z87.442 Personal history of urinary calculi; Z90.49 Acquired absence of other specified parts of digestive tract; Z91.040 Latex allergy status; Z88.0 Allergy status to penicillin; Z88.5 Allergy status to narcotic agent; Z88.1 Allergy status to other antibiotic agents; Z88.8 Allergy status to other drugs, medicaments and biological substances
CPT/HCPCS: 76856; 80053; 81003; 84702; 85027; 93975; 99281; 99285; J1885; J7030

== ENCOUNTER 2017-05-01 07:49 | Emergency (ER) | payer OTHER ==
[~2017-05-01] VITALS: Ht 167.6 cm; Wt 105.0 kg
[2017-05-01 08:43] LABS: HEMATOCRIT 39.1 % (36.0-46.0); HEMOGLOBIN 13.4 G/DL (11.9-15.5); MCH 30.5 PG (29.0-34.0); MCHC 34.3 G/DL (30.0-36.0); MCV 89.1 FL (83-99); PLATELET COUNT 256 K/uL (156-360); RBC DIS.WIDTH-CV 11.6 % (11.8-14.6); RBC DIS.WIDTH-SD 37.4 % (39-53); RED BLOOD COUNT 4.39 M/uL (3.80-5.20); WHITE BLOOD COUNT 7.6 K/uL (4.1-10.2)
[2017-05-01 08:45] LABS: APPEARANCE SL.HAZY ((CLEAR)); BILIRUBIN NEGATIVE; BLOOD NEGATIVE; COLOR YELLOW ((YELLOW)); GLUCOSE (STRIP) NEGATIVE; KETONES NEGATIVE; LEUKOCYTES NEGATIVE; NITRITE NEGATIVE; PROTEIN (STRIP) 30; SPECIFIC GRAVITY 1.025 (1.000-1.030); UROBILINOGEN 0.2 MG/DL (0.2-1.0)
[2017-05-01 08:50] LABS: BACTERIA RARE /HPF; EPITHELIAL CELLS 2+ /HPF; MUCUS TRACE /LPF; RED BLOOD CELLS 0-5 /HPF (0-5); UCUL ADDED? NO; WHITE BLOOD CELLS 0-5 /HPF (0-5)
[2017-05-01 08:51] LABS: ALBUMIN 4.1 g/dL (3.2-4.8); CHLORIDE 111 mEq/L (99-109); SODIUM 144 mEq/L (136-147)
[2017-05-01 08:54] LABS: GLUCOSE 121 mg/dL (70-99); TOTAL PROTEIN 7.6 g/dL (6.4-8.3)
[2017-05-01 08:56] LABS: TOTAL BILIRUBIN 0.3 mg/dL (0.0-1.0)
[2017-05-01 08:57] LABS: ALKALINE PHOSPHATASE 109 IU/L (3-129); CREATININE 0.8 mg/dL (0.6-1.3); GFR ESTIMATE (CALCULATED) > 59 mL/min/
[2017-05-01 08:59] LABS: AST (GOT) 10 IU/L (2-34); UREA NITROGEN (BUN) 13 mg/dL (9-23)
[2017-05-01 09:00] LABS: ALT (GPT) 8 IU/L (3-49)
[2017-05-01 09:06] LABS: QUANTITATIVE HCG < 4.0 MIU/ML
[2017-05-01] MEDS ORDERED: LEVAQUIN750 MG PO (10:46)
[2017-05-01] MEDS ORDERED: NORCO 5/3251 TABLET PO (10:47)
[2017-05-01 10:53] VITALS: BP 138/92
== END 2017-05-01 10:53 | disposition home or self-care (01) ==
LOC: EME 07:49
PROVIDERS: Emergency Medicine Emergency Medical Services
DX: N39.0 Urinary tract infection, site not specified (principal); K21.9 Gastro-esophageal reflux disease without esophagitis; J45.909 Unspecified asthma, uncomplicated; I10 Essential (primary) hypertension; G89.29 Other chronic pain; F41.9 Anxiety disorder, unspecified; F32.9 Major depressive disorder, single episode, unspecified; F17.200 Nicotine dependence, unspecified, uncomplicated; Z79.891 Long term (current) use of opiate analgesic; Z96.0 Presence of urogenital implants; Z87.440 Personal history of urinary (tract) infections; Z87.442 Personal history of urinary calculi; Z90.49 Acquired absence of other specified parts of digestive tract; Z85.9 Personal history of malignant neoplasm, unspecified; Z88.0 Allergy status to penicillin; Z88.5 Allergy status to narcotic agent
CPT/HCPCS: 80053; 81003; 84702; 85027; 99281; 99285; J0780; J3010

== ENCOUNTER 2017-06-11 10:17 | Emergency (ER) | payer OTHER ==
[~2017-06-11] VITALS: Ht 167.6 cm; Wt 103.1 kg
[~2017-06-11 10:17] MED LIST changes: +LEVAQUIN750 MG PO
[2017-06-11 11:04] LABS: HEMATOCRIT 43.6 % (36.0-46.0); HEMOGLOBIN 14.9 G/DL (11.9-15.5); MCH 30.2 PG (29.0-34.0); MCHC 34.2 G/DL (30.0-36.0); MCV 88.4 FL (83-99); PLATELET COUNT 270 K/uL (156-360); RBC DIS.WIDTH-CV 12.5 % (11.8-14.6); RBC DIS.WIDTH-SD 40.8 % (39-53); RED BLOOD COUNT 4.93 M/uL (3.80-5.20); WHITE BLOOD COUNT 6.6 K/uL (4.1-10.2)
[2017-06-11 11:14] LABS: ALBUMIN 4.4 g/dL (3.2-4.8); CHLORIDE 108 mEq/L (99-109); POTASSIUM 3.7 mEq/L (3.7-5.4); SODIUM 141 mEq/L (136-147)
[2017-06-11 11:17] LABS: GLUCOSE 123 mg/dL (70-99); TOTAL PROTEIN 8.1 g/dL (6.4-8.3)
[2017-06-11 11:19] LABS: TOTAL BILIRUBIN 0.8 mg/dL (0.0-1.0)
[2017-06-11 11:20] LABS: ALKALINE PHOSPHATASE 99 IU/L (3-129); CREATININE 1.1 mg/dL (0.6-1.3); GFR ESTIMATE (CALCULATED) > 59 mL/min/
[2017-06-11 11:21] LABS: UREA NITROGEN (BUN) 12 mg/dL (9-23)
[2017-06-11 11:22] LABS: AST (GOT) 14 IU/L (2-34)
[2017-06-11 11:23] LABS: ALT (GPT) 14 IU/L (3-49)
[2017-06-11 11:32] LABS: QUANTITATIVE HCG < 4.0 MIU/ML
[2017-06-11 11:55] LABS: APPEARANCE CLOUDY ((CLEAR)); BILIRUBIN MODERATE; BLOOD NEGATIVE; COLOR YELLOW ((YELLOW)); GLUCOSE (STRIP) NEGATIVE; KETONES NEGATIVE; LEUKOCYTES NEGATIVE; NITRITE NEGATIVE; PROTEIN (STRIP) 100; SPECIFIC GRAVITY 1.029 (1.000-1.030)
[2017-06-11 12:14] LABS: BACTERIA 1+ /HPF; EPITHELIAL CELLS 2+ /HPF; MUCUS 1+ /LPF; RED BLOOD CELLS 0-5 /HPF (0-5); WHITE BLOOD CELLS 0-5 /HPF (0-5)
[2017-06-11] MEDS ORDERED: BENTYL10 MG PO (12:24)
[2017-06-11] MEDS ORDERED: ZOFRAN ODT8 MG PO (12:26)
[2017-06-11 12:27] LABS: ICTOTEST POSITIVE
[2017-06-11] MEDS ORDERED: FLEET ENEMA-AD118 ML PR (12:29)
[2017-06-11 12:47] VITALS: BP 161/98
[2017-06-12] MEDS ORDERED: MOTRIN800 MG PO (10:59)
== END 2017-06-11 12:49 | disposition home or self-care (01) ==
LOC: EME 10:17
PROVIDERS: Nurse Practitioner Family
DX: K59.00 Constipation, unspecified (principal); B34.9 Viral infection, unspecified; K21.9 Gastro-esophageal reflux disease without esophagitis; J45.909 Unspecified asthma, uncomplicated; I10 Essential (primary) hypertension; K31.84 Gastroparesis; F31.9 Bipolar disorder, unspecified; F41.9 Anxiety disorder, unspecified; F32.9 Major depressive disorder, single episode, unspecified; G43.909 Migraine, unspecified, not intractable, without status migrainosus; F17.200 Nicotine dependence, unspecified, uncomplicated; Z87.442 Personal history of urinary calculi; Z90.49 Acquired absence of other specified parts of digestive tract; Z91.040 Latex allergy status; Z88.5 Allergy status to narcotic agent; Z88.0 Allergy status to penicillin; Z88.1 Allergy status to other antibiotic agents
CPT/HCPCS: 74018; 80053; 81003; 84702; 85027; 99281; 99285; J1885; J2405; J2550; J7030

== ENCOUNTER 2017-06-12 00:06 | Observation (INO) | payer OTHER ==
[2017-06-12] VITALS (7 sets, daily range): BP systolic 138–182; BP diastolic 76–98
[~2017-06-12] VITALS: Ht 167.6 cm; Wt 103.2 kg
[~2017-06-12 00:06] MED LIST changes: +BENTYL10 MG PO; +FLEET ENEMA-AD118 ML PR; +ZOFRAN ODT8 MG PO
[2017-06-12 02:03] LABS: HEMATOCRIT 41.7 % (36.0-46.0); HEMOGLOBIN 14.2 G/DL (11.9-15.5); MCH 30.3 PG (29.0-34.0); MCHC 34.1 G/DL (30.0-36.0); MCV 88.9 FL (83-99); PLATELET COUNT 311 K/uL (156-360); RBC DIS.WIDTH-CV 12.8 % (11.8-14.6); RBC DIS.WIDTH-SD 41.9 % (39-53); RED BLOOD COUNT 4.69 M/uL (3.80-5.20); WHITE BLOOD COUNT 13.7 K/uL (4.1-10.2)
[2017-06-12 02:19] LABS: CHLORIDE 106 mEq/L (99-109); POTASSIUM 3.8 mEq/L (3.7-5.4); SODIUM 145 mEq/L (136-147)
[2017-06-12 02:21] LABS: GLUCOSE 137 mg/dL (70-99); TOTAL PROTEIN 8.5 g/dL (6.4-8.3)
[2017-06-12 02:25] LABS: ALKALINE PHOSPHATASE 102 IU/L (3-129); CREATININE 1.1 mg/dL (0.6-1.3); GFR ESTIMATE (CALCULATED) > 59 mL/min/
[2017-06-12 02:26] LABS: AST (GOT) 19 IU/L (2-34); UREA NITROGEN (BUN) 19 mg/dL (9-23)
[2017-06-12 02:27] LABS: DIRECT BILIRUBIN 0.2 mg/dL (0.0-0.3)
[2017-06-12 02:28] LABS: ALT (GPT) 17 IU/L (3-49); LIPASE 8 U/L (1.0-51.0)
[2017-06-12 02:30] LABS: TOTAL BILIRUBIN 0.6 mg/dL (0.0-1.0)
[2017-06-12 04:45] LABS: APPEARANCE CLOUDY ((CLEAR)); BILIRUBIN MODERATE; BLOOD NEGATIVE; COLOR YELLOW ((YELLOW)); GLUCOSE (STRIP) NEGATIVE; KETONES 5; LEUKOCYTES SMALL; NITRITE NEGATIVE; PROTEIN (STRIP) 100; SPECIFIC GRAVITY 1.031 (1.000-1.030)
[2017-06-12 05:10] LABS: RED BLOOD CELLS NONE SEEN /HPF (0-5); WHITE BLOOD CELLS 0-5 /HPF (0-5)
[2017-06-12 05:11] LABS: AMORPHOUS URATES CRYSTALS 3+; BACTERIA 2+ /HPF; EPITHELIAL CELLS 1+ /HPF; MUCUS RARE /LPF; UCUL ADDED? YES
[2017-06-12 05:24] LABS: ICTOTEST NEGATIVE
[2017-06-12] MEDS ORDERED: MOTRIN800 MG PO (10:59)
[2017-06-12 13:04] LABS: HEMATOCRIT 40.2 % (36.0-46.0); HEMOGLOBIN 13.3 G/DL (11.9-15.5); MCH 29.3 PG (29.0-34.0); MCHC 33.1 G/DL (30.0-36.0); MCV 88.5 FL (83-99); PLATELET COUNT 253 K/uL (156-360); RBC DIS.WIDTH-CV 12.7 % (11.8-14.6); RBC DIS.WIDTH-SD 41.5 % (39-53); RED BLOOD COUNT 4.54 M/uL (3.80-5.20); WHITE BLOOD COUNT 15.6 K/uL (4.1-10.2)
[2017-06-12 13:39] LABS: CHLORIDE 106 MEQ/L (99-109); CREATININE 0.9 MG/DL (0.6-1.3); GFR ESTIMATE (CALCULATED) > 59 mL/min/; GLUCOSE 118 mg/dL (70-99); POTASSIUM 3.9 MEQ/L (3.7-5.4); SODIUM 142 MEQ/L (136-147); UREA NITROGEN (BUN) 19 mg/dL (9-23)
[2017-06-12 14:13] LABS: BENZODIAZEPINES, URINE SCREEN Negative (200 ng/mL)
[2017-06-13 06:49] LABS: HEMATOCRIT 37.2 % (36.0-46.0); HEMOGLOBIN 12.3 G/DL (11.9-15.5); MCHC 33.1 G/DL (30.0-36.0); MCV 90.7 FL (83-99); PLATELET COUNT 203 K/uL (156-360); RBC DIS.WIDTH-CV 12.7 % (11.8-14.6); RBC DIS.WIDTH-SD 41.8 % (39-53); WHITE BLOOD COUNT 7.5 K/uL (4.1-10.2)
[2017-06-13 07:18] LABS: ALBUMIN 3.7 G/DL (3.2-4.8); CHLORIDE 109 MEQ/L (99-109); CREATININE 0.9 MG/DL (0.6-1.3); GFR ESTIMATE (CALCULATED) > 59 mL/min/; GLUCOSE 94 mg/dL (70-99); PHOSPHORUS 3.2 mg/dL (2.5-4.9); POTASSIUM 3.6 MEQ/L (3.7-5.4); SODIUM 143 MEQ/L (136-147); UREA NITROGEN (BUN) 13 mg/dL (9-23)
[2017-06-13 09:03] VITALS: BP 118/67
[2017-06-13 10:17] LABS: C DIFF TOXIN NEGATIVE (NEGATIVE)
[2017-06-13 11:23] VITALS: BP 143/85
[2017-06-13 15:29] VITALS: BP 192/92
[2017-06-13 20:12] VITALS: BP 185/89
[2017-06-14 00:04] VITALS: BP 135/68
[2017-06-14 03:47] VITALS: BP 142/76
[2017-06-14 08:43] VITALS: BP 181/94
[2017-06-14 09:52] LABS: MAGNESIUM 1.8 mg/dl (1.3-2.7); PHOSPHORUS 2.9 mg/dL (2.5-4.9); POTASSIUM 3.3 MEQ/L (3.7-5.4)
[2017-06-14 09:58] LABS: BENZODIAZEPINES, URINE SCREEN Negative (200 ng/mL)
[2017-06-14 11:11] VITALS: BP 163/88
[2017-06-14 20:00] VITALS: BP 138/79
[2017-06-15 00:17] VITALS: BP 102/55
[2017-06-15 05:48] LABS: BASOPHIL (%) 0.7 % (0-1); BASOPHIL COUNT 0.1 K/uL (0-0.1); EOSINOPHIL (%) 3.1 % (0-5); EOSINOPHIL COUNT 0.2 K/uL (0-0.3); HEMATOCRIT 36.6 % (36.0-46.0); HEMOGLOBIN 12.2 G/DL (11.9-15.5); IMMATURE GRANULOCYTE (%) 0.3 % (0.0-0.7); LYMPHOCYTE (%) 49.4 % (15-42); LYMPHOCYTE COUNT 3.3 K/uL (1.0-2.8); MCH 29.3 PG (29.0-34.0); MCHC 33.3 G/DL (30.0-36.0); MONOCYTE (%) 6.7 % (3-12); MONOCYTE COUNT 0.5 K/uL (0-0.8); NEUTROPHIL (%) 39.8 % (45-76); NEUTROPHIL COUNT 2.7 K/uL (1.8-6.4); PLATELET COUNT 204 K/uL (156-360); RBC DIS.WIDTH-CV 12.1 % (11.8-14.6); RED BLOOD COUNT 4.16 M/uL (3.80-5.20); WHITE BLOOD COUNT 6.7 K/uL (4.1-10.2)
[2017-06-15 06:16] LABS: CHLORIDE 101 MEQ/L (99-109); GFR ESTIMATE (CALCULATED) > 59 mL/min/; GLUCOSE 88 mg/dL (70-99); POTASSIUM 3.6 MEQ/L (3.7-5.4); UREA NITROGEN (BUN) 10 mg/dL (9-23)
[2017-06-15 06:17] LABS: SODIUM 135 MEQ/L (136-147)
[2017-06-15 08:34] VITALS: BP 108/60
[2017-06-15] MEDS ORDERED: CARAFATE1 GM PO (09:35)
== END 2017-06-15 11:35 | disposition home or self-care (01) ==
LOC: EME 00:06 → EDOF 03:39 → 5WEST 03:39 → ENRESERV 03:40 → 5WEST 04:39
PROVIDERS: Emergency Medicine; Internal Medicine; Internal Medicine Gastroenterology; Nurse Practitioner Adult Health
DX: K44.9 Diaphragmatic hernia without obstruction or gangrene (principal); K21.0 Gastro-esophageal reflux disease with esophagitis; K22.10 Ulcer of esophagus without bleeding; K29.70 Gastritis, unspecified, without bleeding; R19.7 Diarrhea, unspecified; E86.0 Dehydration; K59.00 Constipation, unspecified; D72.829 Elevated white blood cell count, unspecified; F17.210 Nicotine dependence, cigarettes, uncomplicated; I10 Essential (primary) hypertension; Z86.19 Personal history of other infectious and parasitic diseases; K31.84 Gastroparesis; F11.20 Opioid dependence, uncomplicated; G89.4 Chronic pain syndrome; M54.9 Dorsalgia, unspecified; J45.909 Unspecified asthma, uncomplicated; F31.9 Bipolar disorder, unspecified; Z87.442 Personal history of urinary calculi; Z87.19 Personal history of other diseases of the digestive system; Z88.0 Allergy status to penicillin; Z88.5 Allergy status to narcotic agent; Z91.040 Latex allergy status; Z91.018 Allergy to other foods; Z88.8 Allergy status to other drugs, medicaments and biological substances; Z91.19 Patient's noncompliance with other medical treatment and regimen
CPT/HCPCS: 74176; 80048; 80048 91; 80069; 80076; 80306 90; 81003; 83605; 83690; 83735; 84100; 84132; 85025; 85027; 87086; 87493; 88305; 88342 TC; 99281; 99285; C9113; G0378; J0595; J0780; J1170; J1650; J1885; J1956; J2060; J2270; J2405; J2765; J3480; J7030; J7050

== ENCOUNTER 2017-08-12 06:47 | Emergency (ER) | payer OTHER ==
[~2017-08-12] VITALS: Ht 167.6 cm; Wt 102.1 kg
[~2017-08-12 06:47] MED LIST changes: +MOTRIN800 MG PO
[2017-08-12 07:46] LABS: APPEARANCE CLOUDY ((CLEAR)); BILIRUBIN SMALL; BLOOD SMALL; COLOR AMBER ((YELLOW)); GLUCOSE (STRIP) NEGATIVE; KETONES 5; LEUKOCYTES LARGE; NITRITE NEGATIVE; PROTEIN (STRIP) 100
[2017-08-12 07:59] LABS: HEMATOCRIT 41.3 % (36.0-46.0); HEMOGLOBIN 14.2 G/DL (11.9-15.5); MCH 30.1 PG (29.0-34.0); MCHC 34.4 G/DL (30.0-36.0); MCV 87.5 FL (83-99); PLATELET COUNT 289 K/uL (156-360); RBC DIS.WIDTH-SD 41.7 % (39-53); RED BLOOD COUNT 4.72 M/uL (3.80-5.20); WHITE BLOOD COUNT 15.2 K/uL (4.1-10.2)
[2017-08-12 08:09] LABS: ALBUMIN 4.6 g/dL (3.2-4.8); CHLORIDE 102 mEq/L (99-109); POTASSIUM 3.5 mEq/L (3.7-5.4); SODIUM 140 mEq/L (136-147)
[2017-08-12 08:11] LABS: GLUCOSE 159 mg/dL (70-99); TOTAL PROTEIN 8.2 g/dL (6.4-8.3)
[2017-08-12 08:13] LABS: TOTAL BILIRUBIN 0.4 mg/dL (0.0-1.0)
[2017-08-12 08:15] LABS: ALKALINE PHOSPHATASE 94 IU/L (3-129); CREATININE 2.1 mg/dL (0.6-1.3); GFR ESTIMATE (CALCULATED) 28 mL/min/
[2017-08-12 08:16] LABS: UREA NITROGEN (BUN) 21 mg/dL (9-23)
[2017-08-12 08:17] LABS: AST (GOT) 9 IU/L (2-34)
[2017-08-12 08:18] LABS: ALT (GPT) 8 IU/L (3-49); LIPASE 52 U/L (1.0-51.0)
[2017-08-12 08:24] LABS: QUANTITATIVE HCG < 4.0 MIU/ML
[2017-08-12 08:27] LABS: BACTERIA 2+ /HPF; EPITHELIAL CELLS 1+ /HPF; MUCUS NONE SEEN /LPF; WHITE BLOOD CELLS 15-20 /HPF (0-5)
[2017-08-12 09:50] VITALS: BP 116/100
[2017-08-12] MEDS ORDERED: CARAFATE1 GM PO (22:12)
[2017-08-12] MEDS ORDERED: ZOCOR20 MG PO (22:13)
[2017-08-12] MEDS ORDERED: ERGOCALCIF50000 UNIT PO (22:14)
[2017-08-12] MEDS ORDERED: VITAMIN B12 100MCG PO (22:14)
[2017-08-12] MEDS ORDERED: BENTYL10 MG PO (22:15)
[2017-08-12] MEDS ORDERED: IBUPROFEN800 MG PO (22:15)
[2017-08-12] MEDS ORDERED: BACTROBAN OINTM22 GM TP (22:15)
[2017-08-13] MEDS ORDERED: ZOFRAN ODT8 MG PO (00:43)
[2017-08-13] MEDS ORDERED: BENTYL20 MG PO (00:43)
[2017-08-13] MEDS ORDERED: KEFLEX500 MG PO (00:43)
[2017-08-13] MEDS ORDERED: POTASSIUM CHLO10 ME4 PO (00:50)
[2017-08-15 08:47] LABS: SOURCE SWAB
== END 2017-08-12 09:50 | disposition home or self-care (01) ==
LOC: EME 06:47
PROVIDERS: Nurse Practitioner Family
DX: N17.9 Acute kidney failure, unspecified (principal); N39.0 Urinary tract infection, site not specified; A59.09 Other urogenital trichomoniasis; Z20.2 Contact with and (suspected) exposure to infections with a predominantly sexual mode of transmission; Z11.3 Encounter for screening for infections with a predominantly sexual mode of transmission; I10 Essential (primary) hypertension; J45.909 Unspecified asthma, uncomplicated; Z87.442 Personal history of urinary calculi; Z88.0 Allergy status to penicillin; F17.200 Nicotine dependence, unspecified, uncomplicated
CPT/HCPCS: 80053; 81003; 83690; 84702; 85027; 87210; 87491; 87591; 99281; 99285; J0696

== ENCOUNTER 2017-08-12 20:52 | Emergency (ER) | payer OTHER ==
[~2017-08-12] VITALS: Ht 167.6 cm; Wt 105.6 kg
[2017-08-12] MEDS ORDERED: CARAFATE1 GM PO (22:12)
[2017-08-12] MEDS ORDERED: ZOCOR20 MG PO (22:13)
[2017-08-12] MEDS ORDERED: VITAMIN B12 100MCG PO (22:14)
[2017-08-12] MEDS ORDERED: ERGOCALCIF50000 UNIT PO (22:14)
[2017-08-12] MEDS ORDERED: BACTROBAN OINTM22 GM TP (22:15)
[2017-08-12] MEDS ORDERED: BENTYL10 MG PO (22:15)
[2017-08-12] MEDS ORDERED: IBUPROFEN800 MG PO (22:15)
[2017-08-12 22:26] LABS: BASOPHIL (%) 0.4 % (0-1); EOSINOPHIL (%) 3.2 % (0-5); EOSINOPHIL COUNT 0.3 K/uL (0-0.3); HEMATOCRIT 38.2 % (36.0-46.0); HEMOGLOBIN 13.1 G/DL (11.9-15.5); IMMATURE GRANULOCYTE (%) 0.2 % (0.0-0.7); LYMPHOCYTE (%) 30.4 % (15-42); LYMPHOCYTE COUNT 2.9 K/uL (1.0-2.8); MCH 30.3 PG (29.0-34.0); MCHC 34.3 G/DL (30.0-36.0); MCV 88.2 FL (83-99); MONOCYTE (%) 5.6 % (3-12); MONOCYTE COUNT 0.5 K/uL (0-0.8); NEUTROPHIL (%) 60.2 % (45-76); NEUTROPHIL COUNT 5.7 K/uL (1.8-6.4); PLATELET COUNT 248 K/uL (156-360); RBC DIS.WIDTH-CV 13.1 % (11.8-14.6); RBC DIS.WIDTH-SD 42.4 % (39-53); RED BLOOD COUNT 4.33 M/uL (3.80-5.20); WHITE BLOOD COUNT 9.6 K/uL (4.1-10.2)
[2017-08-12 22:40] LABS: CHLORIDE 96 mEq/L (99-109); POTASSIUM 3.1 mEq/L (3.7-5.4); SODIUM 137 mEq/L (136-147)
[2017-08-12 22:43] LABS: APPEARANCE SL.HAZY ((CLEAR)); BILIRUBIN NEGATIVE; BLOOD NEGATIVE; COLOR YELLOW ((YELLOW)); GLUCOSE (STRIP) NEGATIVE; KETONES NEGATIVE; LEUKOCYTES LARGE; NITRITE NEGATIVE; PROTEIN (STRIP) 100; SPECIFIC GRAVITY 1.014 (1.000-1.030); UROBILINOGEN 0.2 MG/DL (0.2-1.0)
[2017-08-12 22:46] LABS: ALKALINE PHOSPHATASE 90 IU/L (3-129)
[2017-08-12 22:47] LABS: UREA NITROGEN (BUN) 21 mg/dL (9-23)
[2017-08-12 22:48] LABS: AST (GOT) 9 IU/L (2-34); CREATININE 1.6 mg/dL (0.6-1.3); DIRECT BILIRUBIN 0.1 mg/dL (0.0-0.3); GFR ESTIMATE (CALCULATED) 39 mL/min/; GLUCOSE 106 mg/dL (70-99); TOTAL BILIRUBIN 0.3 mg/dL (0.0-1.0)
[2017-08-12 22:49] LABS: ALT (GPT) 7 IU/L (3-49)
[2017-08-12 22:49] LABS: BACTERIA RARE /HPF; EPITHELIAL CELLS 2+ /HPF; HYALINE CASTS 0-5 /LPF; MUCUS TRACE /LPF
[2017-08-12 22:50] LABS: AMPHETAMINE NEGATIVE (500 ng/mL); BARBITURATES NEGATIVE (200 ng/mL); BENZODIAZEPINES NEGATIVE (150 ng/mL); BUPRENORPHINE NEGATIVE (10 ng/mL); COCAINE PRESUMPTIVE POSITIVE (150 ng/mL); METHADONE NEGATIVE (200 ng/mL); METHAMPHETAMINE NEGATIVE (500 ng/mL); OPIATES (MORPHINE) PRESUMPTIVE POSITIVE (100 ng/mL); OXYCODONE PRESUMPTIVE POSITIVE (100 ng/mL); PHENCYCLIDINE NEGATIVE (25 ng/mL); PROPOXYPHENE NEGATIVE (300 ng/mL); THC CANNABINOIDS PRESUMPTIVE POSITIVE (50 ng/mL); TRICYCLIC ANTIDEPRESSANTS NEGATIVE (300 ng/mL)
[2017-08-13] MEDS ORDERED: ZOFRAN ODT8 MG PO (00:43)
[2017-08-13] MEDS ORDERED: BENTYL20 MG PO (00:43)
[2017-08-13] MEDS ORDERED: KEFLEX500 MG PO (00:43)
[2017-08-13] MEDS ORDERED: POTASSIUM CHLO10 ME4 PO (00:50)
[2017-08-13 02:06] VITALS: BP 108/67
== END 2017-08-13 02:22 | disposition home or self-care (01) ==
LOC: EME 20:52
PROVIDERS: Physician Assistant
DX: N17.9 Acute kidney failure, unspecified (principal); N39.0 Urinary tract infection, site not specified; N72 Inflammatory disease of cervix uteri; E86.0 Dehydration; E87.6 Hypokalemia; R11.2 Nausea with vomiting, unspecified; J45.909 Unspecified asthma, uncomplicated; I10 Essential (primary) hypertension; K21.9 Gastro-esophageal reflux disease without esophagitis; F32.9 Major depressive disorder, single episode, unspecified; Z87.442 Personal history of urinary calculi; F41.9 Anxiety disorder, unspecified; Z87.440 Personal history of urinary (tract) infections; F17.200 Nicotine dependence, unspecified, uncomplicated; Z90.49 Acquired absence of other specified parts of digestive tract; Z91.040 Latex allergy status; Z88.5 Allergy status to narcotic agent; Z88.0 Allergy status to penicillin
CPT/HCPCS: 80048; 80076; 81003; 83605; 84999; 85025; 87040; 87086; 99281; 99285; J0500; J0696; J2405; J7030

== ENCOUNTER 2017-08-25 15:06 | Emergency (ER) | payer OTHER ==
[~2017-08-25] VITALS: Ht 167.6 cm; Wt 100.9 kg
[~2017-08-25 15:06] MED LIST changes: +BACTROBAN OINTM22 GM TP; +ERGOCALCIF50000 UNIT PO; +KEFLEX500 MG PO; +POTASSIUM CHLO10 ME4 PO; +VITAMIN B12 100MCG PO; +ZOCOR20 MG PO
[2017-08-25 15:56] LABS: BASOPHIL (%) 0.9 % (0-1); BASOPHIL COUNT 0.1 K/uL (0-0.1); EOSINOPHIL (%) 1.5 % (0-5); EOSINOPHIL COUNT 0.1 K/uL (0-0.3); HEMATOCRIT 40.3 % (36.0-46.0); IMMATURE GRANULOCYTE (%) 0.1 % (0.0-0.7); LYMPHOCYTE (%) 41.1 % (15-42); LYMPHOCYTE COUNT 3.3 K/uL (1.0-2.8); MCH 30.3 PG (29.0-34.0); MCHC 34.7 G/DL (30.0-36.0); MCV 87.2 FL (83-99); MONOCYTE (%) 5.1 % (3-12); MONOCYTE COUNT 0.4 K/uL (0-0.8); NEUTROPHIL (%) 51.3 % (45-76); NEUTROPHIL COUNT 4.1 K/uL (1.8-6.4); PLATELET COUNT 213 K/uL (156-360); RBC DIS.WIDTH-CV 12.6 % (11.8-14.6); RBC DIS.WIDTH-SD 39.8 % (39-53); RED BLOOD COUNT 4.62 M/uL (3.80-5.20)
[2017-08-25 15:57] LABS: APPEARANCE CLOUDY ((CLEAR)); BILIRUBIN NEGATIVE; BLOOD NEGATIVE; COLOR YELLOW ((YELLOW)); GLUCOSE (STRIP) NEGATIVE; KETONES NEGATIVE; LEUKOCYTES LARGE; NITRITE NEGATIVE; PROTEIN (STRIP) 30; SPECIFIC GRAVITY 1.027 (1.000-1.030); UROBILINOGEN 0.2 MG/DL (0.2-1.0)
[2017-08-25 16:06] LABS: ALBUMIN 4.3 g/dL (3.2-4.8); CHLORIDE 103 mEq/L (99-109); SODIUM 136 mEq/L (136-147)
[2017-08-25 16:08] LABS: GLUCOSE 90 mg/dL (70-99); TOTAL PROTEIN 7.4 g/dL (6.4-8.3)
[2017-08-25 16:10] LABS: TOTAL BILIRUBIN 0.3 mg/dL (0.0-1.0)
[2017-08-25 16:12] LABS: ALKALINE PHOSPHATASE 101 IU/L (3-129); CREATININE 1.4 mg/dL (0.6-1.3); GFR ESTIMATE (CALCULATED) 45 mL/min/
[2017-08-25 16:13] LABS: UREA NITROGEN (BUN) 24 mg/dL (9-23)
[2017-08-25 16:14] LABS: AST (GOT) 11 IU/L (2-34)
[2017-08-25 16:15] LABS: ALT (GPT) 12 IU/L (3-49); LIPASE 39 U/L (1.0-51.0)
[2017-08-25 16:24] LABS: QUANTITATIVE HCG < 4.0 MIU/ML
[2017-08-25 16:32] LABS: EPITHELIAL CELLS 1+ /HPF; MUCUS NONE SEEN /LPF; RED BLOOD CELLS NONE SEEN /HPF (0-5)
[2017-08-25 16:33] LABS: BACTERIA RARE /HPF
[2017-08-25] MEDS ORDERED: FLAGYL500 MG PO (18:18)
[2017-08-25 18:35] VITALS: BP 115/86
[2017-08-25 23:58] LABS: CANDIDA DNA PROBE NEGATIVE; GARDNERELLA DNA PROBE NEGATIVE; TRICHOMONAS DNA PROBE NEGATIVE
[2017-08-26 13:59] LABS: SOURCE SWAB
== END 2017-08-25 18:53 | disposition home or self-care (01) ==
LOC: EME 15:06
PROVIDERS: Physician Assistant
DX: A59.01 Trichomonal vulvovaginitis (principal); F17.200 Nicotine dependence, unspecified, uncomplicated; F32.9 Major depressive disorder, single episode, unspecified; F41.9 Anxiety disorder, unspecified; I10 Essential (primary) hypertension; J45.909 Unspecified asthma, uncomplicated; K21.9 Gastro-esophageal reflux disease without esophagitis; Z87.442 Personal history of urinary calculi; Z88.5 Allergy status to narcotic agent; Z88.0 Allergy status to penicillin; Z91.040 Latex allergy status
CPT/HCPCS: 74176; 80053; 81003; 83690; 84702; 85025; 87210; 87480; 87491; 87510; 87591; 87660; 99281; 99285

== ENCOUNTER 2017-08-28 13:05 | Emergency (ER) | payer OTHER ==
[~2017-08-28] VITALS: Ht 167.6 cm; Wt 102.0 kg
[~2017-08-28 13:05] MED LIST changes: +FLAGYL500 MG PO
[2017-08-28 13:51] LABS: HEMATOCRIT 42.3 % (36.0-46.0); HEMOGLOBIN 14.6 G/DL (11.9-15.5); MCH 29.9 PG (29.0-34.0); MCHC 34.5 G/DL (30.0-36.0); MCV 86.7 FL (83-99); RBC DIS.WIDTH-CV 12.7 % (11.8-14.6); RBC DIS.WIDTH-SD 40.1 % (39-53); RED BLOOD COUNT 4.88 M/uL (3.80-5.20); WHITE BLOOD COUNT 12.6 K/uL (4.1-10.2)
[2017-08-28 14:02] LABS: ALBUMIN 4.4 g/dL (3.2-4.8)
[2017-08-28 14:03] LABS: CHLORIDE 111 mEq/L (99-109); POTASSIUM 4.3 mEq/L (3.7-5.4); SODIUM 140 mEq/L (136-147)
[2017-08-28 14:05] LABS: GLUCOSE 129 mg/dL (70-99); TOTAL PROTEIN 7.5 g/dL (6.4-8.3)
[2017-08-28 14:07] LABS: TOTAL BILIRUBIN 0.3 mg/dL (0.0-1.0)
[2017-08-28 14:08] LABS: ALKALINE PHOSPHATASE 89 IU/L (3-129)
[2017-08-28 14:09] LABS: CREATININE 0.8 mg/dL (0.6-1.3); GFR ESTIMATE (CALCULATED) > 59 mL/min/
[2017-08-28 14:10] LABS: AST (GOT) 11 IU/L (2-34); UREA NITROGEN (BUN) 14 mg/dL (9-23)
[2017-08-28 14:12] LABS: ALT (GPT) 11 IU/L (3-49)
[2017-08-28 14:17] LABS: QUANTITATIVE HCG < 4.0 MIU/ML
[2017-08-28 14:27] LABS: PLAT.SUFFICIENCY ADEQUATE; PLATELET COUNT 245 K/uL (156-360)
[2017-08-28 14:54] LABS: APPEARANCE CLOUDY ((CLEAR)); BILIRUBIN NEGATIVE; BLOOD NEGATIVE; COLOR YELLOW ((YELLOW)); GLUCOSE (STRIP) NEGATIVE; KETONES NEGATIVE; LEUKOCYTES LARGE; NITRITE NEGATIVE; PROTEIN (STRIP) 30; SPECIFIC GRAVITY 1.019 (1.000-1.030); UROBILINOGEN 0.2 MG/DL (0.2-1.0)
[2017-08-28 15:16] LABS: BACTERIA RARE /HPF; EPITHELIAL CELLS 3+ /HPF; MUCUS NONE SEEN /LPF; RED BLOOD CELLS 0-5 /HPF (0-5); UCUL ADDED? NO; WHITE BLOOD CELLS 0-5 /HPF (0-5)
[2017-08-28] MEDS ORDERED: NORCO 5/3251 TABLET PO (20:45)
[2017-08-28] MEDS ORDERED: BACTRIM,SEPT1 TABLET PO (20:49)
[2017-08-28] MEDS ORDERED: ZOFRAN ODT8 MG PO (22:49)
[2017-08-28 22:52] VITALS: BP 111/87
== END 2017-08-28 23:01 | disposition home or self-care (01) ==
LOC: EME 13:05
DX: R10.84 Generalized abdominal pain (principal); R11.2 Nausea with vomiting, unspecified; F11.23 Opioid dependence with withdrawal; N39.0 Urinary tract infection, site not specified; F12.10 Cannabis abuse, uncomplicated; E86.0 Dehydration; I10 Essential (primary) hypertension; K21.9 Gastro-esophageal reflux disease without esophagitis; J45.909 Unspecified asthma, uncomplicated; G43.909 Migraine, unspecified, not intractable, without status migrainosus; F41.9 Anxiety disorder, unspecified; F32.9 Major depressive disorder, single episode, unspecified; F31.9 Bipolar disorder, unspecified; F17.200 Nicotine dependence, unspecified, uncomplicated; Z90.49 Acquired absence of other specified parts of digestive tract; Z87.442 Personal history of urinary calculi; Z87.19 Personal history of other diseases of the digestive system; Z87.440 Personal history of urinary (tract) infections; Z85.9 Personal history of malignant neoplasm, unspecified; Z88.5 Allergy status to narcotic agent; Z88.0 Allergy status to penicillin; Z91.040 Latex allergy status; Z91.02 Food additives allergy status; Z88.1 Allergy status to other antibiotic agents
CPT/HCPCS: 74176; 80053; 81003; 84702; 85027; 99281; 99285; J0780; J1630; J1956; J2405; J3010; J7040